=== PATIENT | male | born 1950 | race Caucasian/White ===

== ENCOUNTER 2023-12-05 10:27 | Outpatient (AMB) | payer OTHER, SELFPAY ==
[2023-12-05 10:47] VITALS: BP 124/68; PULSE 76; RESP 16; BMI 26.6
--- NOTE | 2023-12-05 10:47 | A.OFFVIS_ITS ---
Vital Signs 12/05/23 10:47 Height 5 ft 10 in Weight 185 lb 6 oz BMI 26.6 BP 124/68 Blood Pressure Location Rt brachial Position Sitting Respiration 16 Pulse 76 Pulse Source Palpation Intake Visit Reasons: ENP-Parkinson disease Intake Note: Pt presents for new pt consultation for Parkinson's disease. Riprap Worker Required: No Allergies No Known Allergies Allergy (Verified 12/05/23 10:47) Medication List - Last Reconciled 12/05/23 by Haydee Orozco MD atorvastatin 20 mg PO DAILY cholecalciferol (vitamin D3) 50 mcg PO DAILY glucosamine HCl 500 mg PO DAILY hydrochlorothiazide 25 mg PO DAILY losartan 25 mg PO DAILY multivitamin 1 tab PO DAILY sildenafil 100 mg PO DAILY PRN tamsulosin 0.4 mg PO DAILY HPI Comments Details: 73y/o Right handed male comes for neurological evaluation of possible parkinsons disease. He is accompanied by his deep fryer assembler Moriah He noticed intermittent hand tremors about 10 years ago .The tremors are mostly at rest and happens in short episodes lasting few seconds. The tremors does not bother him and does not affect his ADLs. He reports mild memory issues. Sleep is ok but has nocturia . He denies nightmares, vivid dreams , REM behavior disorder. His mood is Ok and he is motivated. He did not notice any change in his speech. He drools frequently . He has mild difficulty with hand writing. No problems using utensils, dressing , with shower. His gait is slow and mildly off balance . His duaghter noticed that he does not swing his left arm. No dizziness , no double vision . He has constipation and mild urgency He was given sienmet but he did not try it. He declined MARILEE scan. He was exposed to [employer] - 9 months. 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 He had a few falls- 2 falls was related to passing out in the middle of the night. [facility] Medical History Parkinsonism Male erectile dysfunction, unspecified Essential hypertension Carcinoma in situ of prostate Benign prostate hyperplasia Social History Household Members: Spouse Household Members Other:: Sarai, Housing: House Alcohol intake: current Comment: occasional Patient Tobacco Use Status: Never used Tobacco Use of substances other than those prescribed or required for medical reasons: No Physical Exam Vital Signs: Last Vital Signs Pulse 76 12/05/23 10:47 Resp 16 12/05/23 10:47 BP 124/68 12/05/23 10:47 BMI result Body Mass Index 26.6 Const General: cooperative, healthy appearing, comfortable and no acute distress Nutritional Appearance: average body habitus Orientation/consciousness: patient oriented x3 Eyes Pupils: Equal, round and reactive pupils present Neuro Other: Normal facial expression and blink head tremors Neck tightness No tremors today Right Ue 1 + cog wheel rigidity Kathia hand movements were slow Leg movements normal Gait- mild stoop - decreased arm swings kathia L>R ( patient walks 6 miles on days he does not work) General: patient oriented x3, moves all extremities and no focal motor deficits Cranial nerves: Yes Facial sensation intact/muscles of mastication intact, Yes Equal, round and reactive pupils present, Yes Bilaterally intact EOM present, Yes Nystagmus not present, Yes Normal facial strength present, Yes Midline tongue present, Yes Symmetric palate elevation present and Yes Ability to bilaterally elevate shoulders present Cognition (Neuro): normal cognition Motor exam (neuro): 5/5 motor strength present throughout Deep tendon reflexes (DTR's): Right triceps reflex intensity grade: 1+, Left triceps reflex intensity grade: 1+, Rt Biceps (C5, C6): 1+, Left biceps reflex i ntensity grade: 1+, Right brachioradialis reflex intensity grade: 1+, Left brachioradialis reflex intensity grade: 1+, Right patellar reflex intensity grade: 2+ and Left patellar reflex intensity grade: 2+ Coordination: [id number] test normal Results Reviewed Results Reviewed: MRI Brain-07/2023 Normal Assessment & Plan Assessment & Plan (1) Parkinsonism: Code(s): G20.C - Parkinsonism, unspecified Category: Medical Plan Will consider MARILEE scan next visit I will refer him to OT will follow up clinically in 6 mths Orders: Orders OT Evaluation and Treatment Today G20.C - Parkinsonism, unspecified Coding Level of Care Code New Pt Level 4 (06186) Diagnoses Parkinsonism G20.C
== END 2023-12-05 11:30 | disposition home or self-care (01) ==
PROVIDERS: Visit Provider Psychiatry & Neurology Neurology
DX: G20.C Parkinsonism, unspecified (principal)
CPT/HCPCS: 99204

== ENCOUNTER → 2023-12-05 10:27 | Outpatient (BNVA) | payer OTHER, SELFPAY | PROVIDERS: Visit Provider Psychiatry & Neurology Neurology | DX: G20.C Parkinsonism, unspecified (principal) | CPT/HCPCS: 99202 ==

== ENCOUNTER → 2024-02-26 10:27 | Outpatient (REF) | payer OTHER, SELFPAY | LOC: HO.SL 10:27 | PROVIDERS: PCP Internal Medicine; Visit Provider Psychiatry & Neurology Neurology | DX: R06.83 Snoring (principal); G47.10 Hypersomnia, unspecified | CPT/HCPCS: 95806 ==

== ENCOUNTER → 2024-02-26 10:41 | Outpatient (BNV) | payer OTHER, SELFPAY | PROVIDERS: PCP Internal Medicine; Visit Provider Psychiatry & Neurology Neurology | DX: G47.33 Obstructive sleep apnea (adult) (pediatric) (principal) | CPT/HCPCS: 95806 ==

== ENCOUNTER 2024-07-15 11:13 | Outpatient (AMB) | payer OTHER, SELFPAY ==
--- NOTE | 2024-07-15 11:37 | A.OFFVIS_ITS ---
Vital Signs 07/15/24 11:38 Height 5 ft 10 in Weight 189 lb BMI 27.1 BP 122/78 Blood Pressure Location Rt brachial Position Sitting Pulse 66 Pulse Source Pulse Oximeter Pulse Oximetry (%) 99 Oxygen Delivery Method Room Air Intake Visit Reasons: Follow up Parkinson disease Intake Note: patient was not aware of OT ordered by provider Allergies No Known Allergies Allergy (Verified 07/15/24 11:39) Medication List - Last Reconciled 07/15/24 by Haydee Orozco MD atorvastatin 20 mg PO DAILY cholecalciferol (vitamin D3) 50 mcg PO DAILY glucosamine HCl 500 mg PO DAILY hydrochlorothiazide 12.5 mg PO DAILY losartan 25 mg PO DAILY multivitamin 1 tab PO DAILY sildenafil 100 mg PO DAILY PRN tamsulosin 0.4 mg PO DAILY HPI Comments Details: 73y/o Right handed male comes for follow up of Parkinsonism. No change since last visit He is accompanied by his calender let off helper Moriah History from initial visit-He noticed intermittent hand tremors about 10 years ago .The tremors are mostly at rest and happens in short episodes lasting few seconds. The tremors does not bother him and does not affect his ADLs. He reports mild memory issues. Sleep is ok but has nocturia . He denies nightmares, vivid dreams , REM behavior disorder. His mood is Ok and he is motivated. He did not notice any change in his speech. He drools frequently . He has mild difficulty with hand writing. No problems using utensils, dressing , with shower. His gait is slow and mildly off balance . His daughter noticed that he does not swing his left arm. No dizziness , no double vision . He has constipation and mild urgency He was given sienmet but he did not try it. He declined MARILEE scan. He was exposed to [employer] - 9 months. 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 He had a few falls- 2 falls was related to passing out in the middle of the night. [facility] Medical History Hypersomnia Snoring Parkinsonism Parkinsonism Male erectile dysfunction, unspecified Essential hypertension Carcinoma in situ of prostate Benign prostate hyperplasia Social History Household Members: Spouse Household Members Other:: Sarai, Housing: House Alcohol intake: current Comment: occasional Patient Tobacco Use Status: Never used Tobacco Physical Exam Vital Signs: Last Vital Signs Pulse 66 07/15/24 11:38 BP 122/78 07/15/24 11:38 Pulse Ox 99 07/15/24 11:38 Oxygen Delivery Method Room Air 07/15/24 11:38 BMI result Body Mass Index 27.1 Const General: cooperative, healthy appearing, comfortable and no acute distress Nutritional Appearance: average body habitus Orientation/consciousness: patient oriented x3 Eyes Pupils: Equal, round and reactive pupils present Neuro Other: Normal facial expression and blink head tremors Neck tightness No tremors today Right Ue 1 + cog wheel rigidity Kathia hand movements better Leg movements normal Gait- mild stoop - decreased arm swings kathia L>R ( patient walks 6 miles on days he does not work) General: patient oriented x3, moves all extremities and no focal motor deficits Cranial nerves: Yes Facial sensation intact/muscles of mastication intact, Yes Equal, round and reactive pupils present, Yes Bilaterally intact EOM present, Yes Nystagmus not present, Yes Normal facial strength present, Yes Midline tongue present, Yes Symmetric palate elevation present and Yes Ability to bilaterally elevate shoulders present Cognition (Neuro): normal cognition Motor exam (neuro): 5/5 motor strength present throughout Coordination: [id number] test normal Assessment & Plan Assessment & Plan (1) Parkinsonism: Code(s): G20.C - Parkinsonism, unspecified Category: Medical Qualifiers: Parkinsonism type: unspecified Qualified Code(s): G20.C - Parkinsonism, unspecified Plan MARILEE scan No need for medications now. Continue exercises. will follow up clinically in 6 mths Orders: Orders DaTscan 07/15/24 G20.C - Parkinsonism, unspecified Coding Level of Care Code Est Pt Level 4 (39076) Complex EM visit Add On G2211 Diagnoses Parkinsonism, unspecified Parkinsonism type G20.C Parkinsonism type: unspecified
[2024-07-15 11:38] VITALS: BP 122/78; PULSE 66; O2SAT 99; BMI 27.1
--- OUTSIDE RECORDS SUMMARY | 2024-07-15 13:34 | XMS_ITS | Clinical Summary ---
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 Name Role Phone Unavailable Primary Care Provider Unavailabl e Social History Tobacco Use Types Packs/Day Years Used Date Smoking Tobacco: Never Assessed Sex and Gender Information Value Date Recorded Sex Assigned at Male 01/31/2022 10:24 AM EDT Legal Sex Male 10:24 AM EDT Gender Identity Male 01/31/2022 10:24 AM EDT Sexual Orientation Straight 01/31/2022 10 :24 AM EDT Plan of Treatment Health Maintenance Due Date Last Done Comments CT Colonography 1948 Colonoscopy 1948 Colorectal Cancer Screening 1948 Depression Screening 1948 FIT DNA/Cologuard 1948 FIT 1948 FOBT 1948 Lipid Panel 1948 Sigmoidoscopy 1948 Alcohol/Substance Use Screening 1960 Tobacco Screening 1960 DTaP/Tdap/Td Vaccines (1 - Tdap) 1967 Pneumococcal Vaccine: 50+ Ye ars (1 of 1 - PCV) 1998 Zoster Vaccines (1 of 2) 1998 RSV Patients and Pa tients Aged 60 years or older (1 - 1-dose 75+ series) 2023 COVID-19 Vaccine ( - 2023-2 5 season) 2023 Influenza Vaccine (#1) 2023 HIB Vaccines Aged Out No longer eligi ble based on patient's age to complete this topic HPV Vaccines Aged Out No longer eligi ble based on patient's age to complete this topic Hepatitis A Vaccines Aged Out No long er eligible based on patient's age to complete this topic Hepatitis B Vaccines Aged Out No long er eligible based on patient's age to complete this topic IPV Vaccines Aged Out No longer eligi ble based on patient's age to complete this topic Meningococcal Vaccine Aged Out No thee yolanda eligible based on patient's age to complete this topic RSV under 20 months Aged Out No longe r eligible based on patient's age to complete this topic Rotavirus Vaccines Aged Out No longer eligible based on patient's age to complete this topic
--- OUTSIDE RECORDS SUMMARY | 2024-07-15 13:34 | XMS_ITS | Continuity of Care Document ---
Author Name [facility] Organization [facility] Care Team Providers Care Transportation Assistant Name Role Phone [facility] Unavailable Unavailable Problems Combined list of problems from Department of Defense and Veterans Affairs facilities. It does not include entries that were removed or entered in error. Problem Status Onset Date Problem Type Date of Resolution Comments Source Benign prostatic hyperplasia Active Condition [facility] Blind right eye Active Condition [facility] Erectile dysfunction (SNOMED CT [id number]) Active Condition [facility] Ess[facility] hypertension Active Condition [facility] Exposure to potentially hazardous substance Active Condition Jun 02, 2023 Entered By: CAROLYN LÓPEZ Comment: Connect Snomed Code to ICD 10 Code refer to note dated 02/14/23 [facility] Hypercholesterolemia Active Condition [facility] Obstructive Sleep Apnea of Adult (SCT [id number]) Active Condition Apr 05, 2024 Entered By: SUE ARMSTRONG Comment: moderate, AHI 20/hr, sleep study through [facility] neurology Dr. Orozco [facility] Parkinsonism Active Condition [facility] Prostate cancer Active Condition Jan 02, 2024 Entered By: SUE ARMSTRONG Comment: diagnosed 2020, sees Dr. Celestin, s/p radiation tx [facility] Tinnitus Active Condition [facility] Diagnosis: ICD-10-CM K03.6 Deposits [accretions] on teeth Active Diagnosis [facility] Diagnosis: ICD-10-CM G20.C Parkinsonism, unspecified Active Diagnosis [facility] Diagnosis: ICD-10-CM Z46.0 Encounter for fit/adjst of spectacles and contact lenses Active Diagnosis [facility] Diagnosis: ICD-10-CM Z46.1 Encounter for fitting and adjustment of hearing aid Active Diagnosis [facility] Diagnosis: ICD-10-CM H25.813 Combined forms of age-related cataract, bilateral Active Diagnosis [facility] [place] Diagnosis: ICD-10-CM K08.9 Disorder of teeth and supporting structures, unspecified Active Diagnosis [facility] Diagnosis: ICD-10-CM H90.3 Sensorineural hearing loss, bilateral Active Diagnosis [facility] Diagnosis: ICD-10-CM H61.21 Impacted cerumen, right ear Active Diagnosis [facility] Diagnosis: ICD-10-CM Z71.89 Other specified counseling Active Diagnosis [facility] Diagnosis: ICD-10-CM R25.1 Tremor, unspecified Active Diagnosis [facility] Diagnosis: ICD-10-CM 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 Medication Details Route Status Patient Instructions Prescription Expires Prescription Number Last Dispense Date Ordering Provider Order Date Order Qty Source ATORVASTATI N CA 20MG TAB TAKE ONE-HALF TABLET BY MOUTH ONCE DAILY ORAL ACTIVE 08/01/2024 [id number] FURCOLO,T BRITNEY 2023 45 [facility] ATORVASTATI N CA 40MG TAB TAKE ONE-HALF TABLET BY MOUTH ONCE DAILY FOR HIGH CHOLESTE ROL ORAL DISCONT INUED (EDIT) 07/14/2024 [id number] FURCOLO,T BRITNEY 2023 45 [facility] CARBAMIDE PEROXIDE 6.5%/GLYCER IN SOLN,OTIC INSTILL 5 DROPS INTO THE AFFECTED EAR(S) ONCE DAILY FOR EAR WAX BLOCKAGE (USE DIRECTED ) AURICU LAR (OTIC) 07/13/2024 [id number] FURCOLO,T BRITNEY 2023 15 [place] [facility] CARBIDOPA 25MG/LEVODO PA 100MG TAB TAKE 1 TABLET BY MOUTH THREE TIMES A DAY FOR PARKINSO N SYMPTOMS ORAL DISCONT INUED BY PROVIDE R 05/15/2024 [id number] THIERRY DORSEY Y 2023 270 [facility] [place] CHOLECALCIF JESSICA 50MCG (2,000UNIT) TAB TAKE ONE TABLET BY MOUTH ONCE DAILY ORAL ACTIVE DERRICK TSAI AMMARICRUZ JAWED 2020 [facility] GLUCOSAMINE CAP/TAB TAKE EVERY MORNING ACTIVE ALEXANDR PARRA [facility] LOSARTAN 25MG TAB TAKE ONE TABLET BY MOUTH ONCE DAILY ORAL ACTIVE EULALIODERRICK AMMARICRUZ JAWED 2020 [facility] METOPROLOL SUCCINATE 25MG TAB,SA TAKE ONE TABLET BY MOUTH ONCE DAILY FOR BLOOD PRESSURE /HEART ORAL 07/13/2024 [id number] 4 Ele ARMSTRONG BRITNEY 2023 90 [facility] MULTIVITAMI NS W/MINERALS TAB TAKE ONE TABLET BY MOUTH EVERY MORNING ORAL ACTIVE ALEXANDR PARRA 2012 [facility] SODIUM FLUORIDE 1.1% TOOTHPASTE BRUSH SMALL AMOUNT TO TEETH TWICE DAILY FOR TOOTH DECAY PREVENTI ON DENTAL ACTIVE 07/14/2024 [id number] 4 NYASIA ABARCA 2023 51 [facility] TAMSULOSIN HCL 0.4MG CAP TAKE ONE CAPSULE BY MOUTH AT BEDTIME ORAL ACTIVE 07/14/2024 [id number] 4 PATTIT BRITNEY 2023 90 [facility] Immunizations Combined list of available immunizations from the Department of Defense and Veterans Affairs facilities. Immunization Series Date Given Administered By Site Reaction Lot Number CVX Code Drug Karate Instructor Status Comments Source INFLUENZA, UNSPECIFIED FORMULATION 2023 88 complet ed Booster for Series, HISTORICA L INFORMATI ON - FROM OTHER PROVIDER, [facility] TDAP 2022 KALEE DUNN RIGHT DELTO ID [id number] 115 complet ed ADMINISTE RED AT ND, [facility] INFLUENZA, UNSPECIFIED FORMULATION 2022 88 complet ed Completed Series, HISTORICA L INFORMATI ON - FROM OTHER REGISTRY, [facility] INFLUENZA, UNSPECIFIED FORMULATION 2021 88 complet ed [facility] COVID-19 (MODERNA), MRNA, LNP-S, PF, 100 MCG/0.5 ML DOSE 3 2020 207 complet ed MOD; [id number]; 1 [facility] COVID-19 (MODERNA), MRNA, LNP-S, PF, 100 MCG/0.5 ML DOSE 2 2020 207 complet ed MOD; [id number]; 1 [facility] COVID-19 (MODERNA), MRNA, LNP-S, PF, 100 MCG/0.5 ML DOSE 1 2020 207 complet ed MOD; [id number]; 1 [facility] INFLUENZA, UNSPECIFIED FORMULATION 2019 88 complet ed [facility] INFLUENZA, SEASONAL, INJECTABLE 2018 141 complet ed [facility] PNEUMOCOCCAL CONJUGATE PCV 13 2014 133 complet ed yes [facility] PNEUMOCOCCAL POLYSACCHARID E PPV23 2013 33 complet ed [facility] FLU,3 YRS (HISTORICAL) 2012 88 complet ed [facility] TDAP 2012 115 complet ed [facility] PNEUMOCOCCAL, UNSPECIFIED FORMULATION 2011 109 complet ed [facility] Results Combined list of recent chemistry, hematology and other laboratory results from Department of Defense and Veterans Affairs, ranging from 15 months to all on record, depending upon the facility. Order Name Results Value Reference Range Date Interpretation Specimen Comments Source BASIC METABOLIC PANEL (non-fast ing) UREA NITROGEN [MASS/VOLUM E] IN SERUM OR PLASMA 23 mg/dL 7 - 25 12/21 Specimen Type: SERUM No comment entered. Ordering Provider: SUE ARMSTRONG Report Released Date/Time: Dec 14, 2023 07:34 PM Reporting Lab: [facility] [address] [facility] [address] Performing Lab: [facility] HoldingUSEVA [facility] [address] [facility] [address] [facility] Be[facility] HoldingUSE [facility] BASIC METABOLIC PANEL (non-fast ing) GLUCOSE [MASS/VOLUM E] IN SERUM OR PLASMA 100 mg/dL 65 - 100 12/21 Specimen Type: SERUM No comment entered. Ordering Provider: SUE ARMSTRONG Report Released Date/Time: Dec 14, 2023 07:34 PM Reporting Lab: [facility] [place] [facility] [address] [facility] [address] Performing Lab: [facility] HoldingUSEVA [facility] [address] [facility] [address] [facility] Be[facility] HoldingUSE [facility] BASIC METABOLIC PANEL (non-fast ing) SODIUM [MOLES/VOLU ME] IN SERUM OR PLASMA 141 mmol/L 135 - 145 12/21 Specimen Type: SERUM No comment entered. Ordering Provider: SUE ARMSTRONG Report Released Date/Time: Dec 14, 2023 07:34 PM Reporting Lab: [facility] HoldingUSETS [facility] [address] [facility] [address] Performing Lab: [facility]ITALUSE[facility] [address] [facility] [address] [facility]ITALUSE [facility] BASIC METABOLIC PANEL (non-fast ing) POTASSIUM [MOLES/VOLU ME] IN SERUM OR PLASMA 3.8 mmol/L 3.5 - 5.0 12/21 Specimen Type: SERUM No comment entered. Ordering Provider: SUE ARMSTRONG Report Released Date/Time: Dec 14, 2023 07:34 PM Reporting Lab: [facility]PITALUSETS [facility] [address] [facility] [address] Performing Lab: [facility]RL W[facility]N [facility]ITALUSE[facility] [address] [facility] [address] [facility] W[facility]N [facility]ITALUSE [facility] BASIC METABOLIC PANEL (non-fast ing) CHLORIDE [MOLES/VOLU ME] IN SERUM OR PLASMA 104 mmol/L 100 - 110 12/21 Specimen Type: SERUM No comment entered. Ordering Provider: SUE ARMSTRONG Report Released Date/Time: Dec 14, 2023 07:34 PM Reporting Lab: [facility]RL [facility]N [facility]ITALUSE[address] [address] Performing Lab: [facility] CENTERRENCOMPASS [facility] RE[facility]ABILIT[facility] HOSPITAL [facility] GADSDENTRN [facility]OSPITALUSE[address] [address] [facility]OSPITALUSE [facility] BASIC METABOLIC PANEL (non-fast ing) CARBON DIOXIDE, TOTAL [MOLES/VOLU ME] IN SERUM OR PLASMA 28 meq/L 20 - 30 12/21 Specimen Type: SERUM No comment entered. Ordering Provider: SUE ARMSTRONG Report Released Date/Time: Dec 14, 2023 07:34 PM Reporting Lab: [facility]RL [facility]N [facility]ITALUSE[address] [address] Performing Lab: [facility]RL W[facility]N [facility]ITALUSE[address] [address] [facility]RL TRN [facility]OSPITALUSE [facility] BASIC METABOLIC PANEL (non-fast ing) CREATININE [MASS/VOLUM E] IN SERUM OR PLASMA 1.39 mg/dL 0.50 - 1.40 12/21 Specimen Type: SERUM No comment entered. Ordering Provider: SUE ARMSTRONG Report Released Date/Time: Dec 14, 2023 07:34 PM Reporting Lab: [facility]RL [facility]N [facility]ITAL[facility] [address] Performing Lab: [facility]RL WSTRN [facility]ITALUSE[address] [address] [facility] CENTERRENCOMPASS [facility]ALTH REHABILIT[facility]SDENTRN [facility] BASIC METABOLIC PANEL (non-fast ing) GLOMERULAR FILTRATION RATE/1.73 SQ M.PREDICTED [VOLUME RATE/AREA] IN SERUM, PLASMA OR BLOOD BY CREATININE- BASED FORMULA (CKD-EPI 2020) 53 mL/min 60 12/21 L Specimen Type: SERUM No comment entered. Ordering Provider: SUE ARMSTRONG Report Released Date/Time: Dec 14, 2023 07:34 PM Reporting Lab: [facility]N [facility]OSPITALUSEVA [facility] [address] [facility] [address] Performing Lab: [facility]N [facility]ITALUSE[address] [address] [facility] LIPID PANEL, NON FASTING CHOLESTEROL [MASS/VOLUM E] IN SERUM OR PLASMA 160 mg/dL 12/21 Specimen Type: SERUM No comment entered. Ordering Provider: SUE ARMSTRONG Report Released Date/Time: Dec 14, 2023 07:34 PM Reporting Lab: [facility] [address] [facility] [address] Performing Lab: [facility]N [facility]ITALUSE[address] [address] [facility] LIPID PANEL, NON FASTING TRIGLYCERID E [MASS/VOLUM E] IN SERUM OR PLASMA 88 mg/dL 0 - 150 12/21 Specimen Type: SERUM No comment entered. Ordering Provider: SUE ARMSTRONG Report Released Date/Time: Dec 14, 2023 07:34 PM Reporting Lab: [facility]N [facility]ITALUSE[address] [address] Performing Lab: [facility]N [facility]ITALUSE[address] [address] [facility] LIPID PANEL, NON FASTING CHOLESTEROL IN LDL [MASS/VOLUM E] IN SERUM OR PLASMA BY CALCULATION 79 mg/dL 0 - 129 12/21 Specimen Type: SERUM No comment entered. Ordering Provider: SUE ARMSTRONG Report Released Date/Time: Dec 14, 2023 07:34 PM Reporting Lab: [address] [address] Performing Lab: [facility] CENTERRENCOMPASS [facility]ABILIT[facility] HOSP[facility] GADSDENTRN [facility]ITALUSE[facility] [address] [facility] [address] [facility]N [facility] HOSPITALUSE [facility] LIPID PANEL, NON FASTING CHOLESTEROL .TOTAL/CHOL ESTEROL IN HDL [MASS RATIO] IN SERUM OR PLASMA 2.5 12/21 Specimen Type: SERUM No comment entered. Ordering Provider: SUE ARMSTRONG Report Released Date/Time: Dec 14, 2023 07:34 PM Reporting Lab: [facility] CENTERRENCOM[facility]IL[facility] HOS[facility] GADSDENTRN [facility]OSPITALUSEVA [facility] [address] [facility] [address] Performing Lab: [facility] CENTERRCARRAWAY [facility] CENTERN [facility]ITALUSE[address] [address] [facility]N [facility] LIPID PANEL, NON FASTING CHOLESTEROL IN HDL [MASS/VOLUM E] IN SERUM OR PLASMA 63 mg/dL 40 - 60 12/21 H Specimen Type: SERUM No comment entered. Ordering Provider: SUE ARMSTRONG Report Released Date/Time: Dec 14, 2023 07:34 PM Reporting Lab: [facility] CENTERRL TRN [facility] HOSPITALUSETS [facility] [address] [facility] [address] Performing Lab: [facility]ENTERRL TRN [facility]ITALUSE[address] [address] [facility]N [facility] HOSPITALUSE [facility] BASIC METABOLIC PANEL (fasting) UREA NITROGEN [MASS/VOLUM E] IN SERUM OR PLASMA 25 mg/dL 7 - 25 07/12 Specimen Type: SERUM No comment entered. Ordering Provider: SUE ARMSTRONG Report Released Date/Time: Jul 13, 2023 10:25 AM Reporting Lab: [facility] CENTERRENCOMPASS [facility] RE[facility]ABILITATION HOSPITAL OF GADSDENTRN [place] [address] [address] Performing Lab: [facility] CENTERRENCOM[facility]ILIT[facility] HOSP[facility] OF GADSDENTRN [facility]ITALUSE[address] [address] [facility] CENTERRCARRAWAY METHODIST MEDICAL CENTERN [facility] HOSPITALUSE [facility] BASIC METABOLIC PANEL (fasting) GLUCOSE [MASS/VOLUM E] IN SERUM OR PLASMA 86 mg/dL 65 - 100 07/12 Specimen Type: SERUM No comment entered. Ordering Provider: SUE ARMSTRONG Report Released Date/Time: Jul 13, 2023 10:25 AM Reporting Lab: [facility]ENTERRL [facility]N [place] [facility] [address] [facility] [address] Performing Lab: [place] [facility] [facility] [address] [facility] [address] [facility]RL [facility]N [place] [facility] BASIC METABOLIC PANEL (fasting) SODIUM [MOLES/VOLU ME] IN SERUM OR PLASMA 141 mmol/L 135 - 145 07/12 Specimen Type: SERUM No comment entered. Ordering Provider: SUE ARMSTRONG Report Released Date/Time: Jul 13, 2023 10:25 AM Reporting Lab: [facility] [place] [facility] [address] [facility] [address] Performing Lab: [place] [facility] [place] [facility] [address] [facility] [address] [facility]RL TRN [facility]OSPITALUSE [facility] BASIC METABOLIC PANEL (fasting) POTASSIUM [MOLES/VOLU ME] IN SERUM OR PLASMA 4.3 mmol/L 3.5 - 5.0 07/12 Specimen Type: SERUM No comment entered. Ordering Provider: SEU ARMSTRONG Report Released Date/Time: Jul 13, 2023 10:25 AM Reporting Lab: [facility] [place] [facility] [address] [facility] [address] Performing Lab: [place] [facility] [place] [facility] [address] [facility] [address] [facility]ENTERRL TRN [facility]ITALUSE [facility] BASIC METABOLIC PANEL (fasting) CHLORIDE [MOLES/VOLU ME] IN SERUM OR PLASMA 102 mmol/L 100 - 110 07/12 Specimen Type: SERUM No comment entered. Ordering Provider: SUE ARMSTRONG Report Released Date/Time: Jul 13, 2023 10:25 AM Reporting Lab: [facility] [place] [facility] [address] [facility] [address] Performing Lab: [place] [facility] [place] [facility] [address] [facility] [address] [facility]RL WSTRN [facility]ITALUSE [facility] BASIC METABOLIC PANEL (fasting) CARBON DIOXIDE, TOTAL [MOLES/VOLU ME] IN SERUM OR PLASMA 28 meq/L 20 - 30 07/12 Specimen Type: SERUM No comment entered. Ordering Provider: SUE ARMSTRONG Report Released Date/Time: Jul 13, 2023 10:25 AM Reporting Lab: [facility] [place] [facility] [address] [facility] [address] Performing Lab: [facility] [place] [facility] [address] [facility] [address] [facility]RL [facility]N [place] [facility] BASIC METABOLIC PANEL (fasting) CREATININE [MASS/VOLUM E] IN SERUM OR PLASMA 1.42 mg/dL 0.50 - 1.40 07/12 H Specimen Type: SERUM No comment entered. Ordering Provider: SUE ARMSTRONG Report Released Date/Time: Jul 13, 2023 10:25 AM Reporting Lab: [facility] [place] [facility] [address] [facility] [address] Performing Lab: [place] [facility] [place] [address] [address] [facility]RL WSTRN MASSUSE [facility] BASIC METABOLIC PANEL (fasting) GLOMERULAR FILTRATION RATE/1.73 SQ M.PREDICTED [VOLUME RATE/AREA] IN SERUM, PLASMA OR BLOOD BY CREATININE- BASED FORMULA (CKD-EPI 2020) 51 mL/min 60 07/12 L Specimen Type: SERUM No comment entered. Ordering Provider: SUE ARMSTRONG Report Released Date/Time: Jul 13, 2023 10:25 AM Reporting Lab: [facility] [facility] [address] [facility] [address] Performing Lab: [place] [facility] [place] [address] [address] [facility]RL W[facility]N [facility] LIPID PANEL FASTING CHOLESTEROL [MASS/VOLUM E] IN SERUM OR PLASMA 169 mg/dL 07/12 Specimen Type: SERUM No comment entered. Ordering Provider: SUE ARMSTRONG Report Released Date/Time: Jul 13, 2023 10:25 AM Reporting Lab: [facility] [facility] [address] [facility] [address] Performing Lab: [facility]RL WSTRN [facility]PITALUSETS [address] [address] [facility]RL [facility] [place] [facility] LIPID PANEL FASTING TRIGLYCERID E [MASS/VOLUM E] IN SERUM OR PLASMA 67 mg/dL 0 - 150 07/12 Specimen Type: SERUM No comment entered. Ordering Provider: SUE ARMSTRONG Report Released Date/Time: Jul 13, 2023 10:25 AM Reporting Lab: [facility] [facility] [address] [facility] [address] Performing Lab: [place] [facility]N [facility]ITALUSETS [facility] [address] [facility] [address] [facility] W[facility]N [facility]RAW[facility]ENTERCHUSE [facility] LIPID PANEL FASTING CHOLESTEROL IN LDL [MASS/VOLUM E] IN SERUM OR PLASMA BY CALCULATION 87 mg/dL 0 - 129 07/12 Specimen Type: SERUM No comment entered. Ordering Provider: SUE ARMSTRONG Report Released Date/Time: Jul 13, 2023 10:25 AM Reporting Lab: [facility] CENTERRENCOM[facility] GADSDENTRN [facility]ITALUSE[address] [address] Performing Lab: [facility]RL WSTRN [facility]ITAL[facility] [address] [facility]RL TRN [facility]ITALUSE [facility] LIPID PANEL FASTING CHOLESTEROL .TOTAL/CHOL ESTEROL IN HDL [MASS RATIO] IN SERUM OR PLASMA 2.4 07/12 Specimen Type: SERUM No comment entered. Ordering Provider: SUE ARMSTRONG Report Released Date/Time: Jul 13, 2023 10:25 AM Reporting Lab: [facility]RL [place] [place] [address] [address] Performing Lab: [facility]RL WSTRN [facility]PITALUSETS [address] [address] [facility]RL TRN [facility]ITALUSE [facility] LIPID PANEL FASTING CHOLESTEROL IN HDL [MASS/VOLUM E] IN SERUM OR PLASMA 69 mg/dL 40 - 60 07/12 H Specimen Type: SERUM No comment entered. Ordering Provider: SUE ARMSTRONG Report Released Date/Time: Jul 13, 2023 10:25 AM Reporting Lab: [facility]RL [place] [place] [address] [address] Performing Lab: [facility]RL [place] [address] [address] [facility]RL [facility]N [place] [facility] LIVER FUNCTION PROTEIN [MASS/VOLUM E] IN SERUM OR PLASMA 7.1 g/dL 6.0 - 8.3 07/12 Specimen Type: SERUM No comment entered. Ordering Provider: SUE ARMSTRONG Report Released Date/Time: Jul 13, 2023 10:25 AM Reporting Lab: [facility] [place] [facility] [address] [facility] [address] Performing Lab: [facility] [facility] [address] [facility] [address] [place] [facility] [place] [facility] LIVER FUNCTION ALBUMIN [MASS/VOLUM E] IN SERUM OR PLASMA 4.2 g/dL 3.5 - 5.0 07/12 Specimen Type: SERUM No comment entered. Ordering Provider: SUE ARMSTRONG Report Released Date/Time: Jul 13, 2023 10:25 AM Reporting Lab: [facility] [place] [address] [address] Performing Lab: [facility] [place] [address] [address] [facility] [place] [facility] LIVER FUNCTION ALKALINE PHOSPHATASE [ENZYMATIC ACTIVITY/VO LUME] IN SERUM OR PLASMA 106 U/L 40 - 150 07/12 Specimen Type: SERUM No comment entered. Ordering Provider: SUE ARMSTRONG Report Released Date/Time: Jul 13, 2023 10:25 AM Reporting Lab: [facility] [place] [address] [address] Performing Lab: [facility] [place] [address] [address] [facility] [place] [facility] LIVER FUNCTION ASPARTATE AMINOTRANSF ERASE [ENZYMATIC ACTIVITY/VO LUME] IN SERUM OR PLASMA 26 U/L 5 - 34 07/12 Specimen Type: SERUM No comment entered. Ordering Provider: SUE ARMSTRONG Report Released Date/Time: Jul 13, 2023 10:25 AM Reporting Lab: [facility] [place] [address] [address] Performing Lab: [place] [facility] [address] [address] [facility] LIVER FUNCTION ALANINE AMINOTRANSF ERASE [ENZYMATIC ACTIVITY/VO LUME] IN SERUM OR PLASMA 24 U/L 07/12 Specimen Type: SERUM No comment entered. Ordering Provider: SUE ARMSTRONG Report Released Date/Time: Jul 13, 2023 10:25 AM Reporting Lab: [address] Performing Lab: [address] LIVER FUNCTION BILIRUBIN.T OTAL [MASS/VOLUM E] IN SERUM OR PLASMA 0.8 mg/dL 0.2 - 1.2 07/12 Specimen Type: SERUM No comment entered. Ordering Provider: SUE ARMSTRONG Report Released Date/Time: Jul 13, 2023 10:25 AM Reporting Lab: [address] [address] Performing Lab: [id number] [place] [address] VITAMIN B-1 (THIAMINE )-(QU) THIAMINE [MOLES/VOLU ME] IN SERUM OR PLASMA 17 nmol/L 8 - 30 05/15 Specimen Type: PLASMA Comment: Vitamin supplementa tion within 24 hours prior to blood draw may affect the accuracy of the results. This test was developed and its analytical performance characteris tics have been determined by [facility] [place], [place]. It has not been cleared or approved by the U.S. Food and Drug Administrat ion. This assay has been validated pursuant to the CLIA regulations and is used for clinical purposes. Test Performed by [employer], [facility] [place], [address] [facility], [place], [place] Vinnie Cesar M.D., Ph.D., Director of Laboratorie s , CLIA [id number] TEST PERFORMED AT: , Ordering Provider: JOHNIE DORSEY Report Released Date/Time: May 15, 2023 08:04 AM Reporting Lab: [facility] [place] [facility] [address] [facility] [address] Performing Lab: [facility] [place] [facility] [address] [address] [facility] VITAMIN B12 COBALAMIN (VITAMIN B12) [MASS/VOLUM E] IN SERUM OR PLASMA 829 pg/mL 200 - 900 05/15 Specimen Type: SERUM No comment entered. Ordering Provider: JOHNIE DORSEY Report Released Date/Time: May 15, 2023 08:04 AM Reporting Lab: [facility] [place] [facility] [address] [facility] [address] Performing Lab: [facility] [place] [facility] [address] [facility] [address] [facility] IRON & TIBC PANEL IRON BINDING CAPACITY [MASS/VOLUM E] IN SERUM OR PLASMA 253 ug/dL 204 - 475 05/15 Specimen Type: SERUM No comment entered. Ordering Provider: JOHNIE DORSEY Report Released Date/Time: May 15, 2023 08:04 AM Reporting Lab: [facility] [place] [facility] [address] [facility] [address] Performing Lab: [facility] [place] [facility] [address] [facility] [address] [facility] [place] [facility] IRON & TIBC PANEL IRON [MASS/VOLUM E] IN SERUM OR PLASMA 111 ug/dL 40 - 160 05/15 Specimen Type: SERUM No comment entered. Ordering Provider: JOHNIE DORSEY Report Released Date/Time: May 15, 2023 08:04 AM Reporting Lab: [facility] [place] [facility] [address] [facility] [address] Performing Lab: [facility] [place] [facility] [address] [facility] [address] [facility] [place] [facility] IRON & TIBC PANEL IRON/IRON BINDING CAPACITY.TO WILIAM [MASS RATIO] IN SERUM OR PLASMA 43.8 20.0 - 50.0 05/15 Specimen Type: SERUM No comment entered. Ordering Provider: JOHNIE DORSEY Report Released Date/Time: May 15, 2023 08:04 AM Reporting Lab: [facility] [place] [facility] [address] [facility] [address] Performing Lab: [facility] [place] [facility] [address] [facility] [address] [facility] [place] VITAMIN D (25-OH) 25-HYDROXYV ITAMIN D3 [MASS/VOLUM E] IN SERUM OR PLASMA 88 ng/mL 20 - 50 05/15 H Specimen Type: SERUM No comment entered. Ordering Provider: JOHNIE DORSEY Report Released Date/Time: May 15, 2023 08:04 AM Reporting Lab: [facility] [place] [facility] [address] [facility] [address] Performing Lab: [facility] [place] [facility] [address] [facility] [address] [facility] [place] BASIC METABOLIC PANEL (fasting) UREA NITROGEN [MASS/VOLUM E] IN SERUM OR PLASMA 20 mg/dL 7 - 25 02/07 Specimen Type: SERUM No comment entered. Ordering Provider: JIMBO TSAI Report Released Date/Time: Jan 27, 2023 11:10 AM Reporting Lab: [facility] [place] [facility] [address] [facility] [address] Performing Lab: [facility] [place] [facility] [address] [facility] [address] [facility] [place] [facility] BASIC METABOLIC PANEL (fasting) GLUCOSE [MASS/VOLUM E] IN SERUM OR PLASMA 84 mg/dL 65 - 100 02/07 Specimen Type: SERUM No comment entered. Ordering Provider: JIMBO TSAI Report Released Date/Time: Jan 27, 2023 11:10 AM Reporting Lab: [facility] [place] [facility] [address] [facility] [address] Performing Lab: [facility] [place] [facility] [address] [facility] [address] [facility] [place] [facility] BASIC METABOLIC PANEL (fasting) SODIUM [MOLES/VOLU ME] IN SERUM OR PLASMA 141 mmol/L 135 - 145 02/07 Specimen Type: SERUM No comment entered. Ordering Provider: JIMBO TSAI Report Released Date/Time: Jan 27, 2023 11:10 AM Reporting Lab: [facility] [place] [facility] [address] [facility] [address] Performing Lab: [facility] [place] [facility] [address] [facility] [address] [facility] [facility] BASIC METABOLIC PANEL (fasting) POTASSIUM [MOLES/VOLU ME] IN SERUM OR PLASMA 4.9 mmol/L 3.5 - 5.0 02/07 Specimen Type: SERUM No comment entered. Ordering Provider: JIMBO TSAI Report Released Date/Time: Jan 27, 2023 11:10 AM Reporting Lab: [facility] [place] [address] [address] Performing Lab: [facility] [place] [address] [address] [facility] [place] [facility] BASIC METABOLIC PANEL (fasting) CHLORIDE [MOLES/VOLU ME] IN SERUM OR PLASMA 105 mmol/L 100 - 110 02/07 Specimen Type: SERUM No comment entered. Ordering Provider: JIMBO TSAI Report Released Date/Time: Jan 27, 2023 11:10 AM Reporting Lab: [facility] [place] [facility] [address] [facility] [address] Performing Lab: [facility] [place] [facility] [address] [facility] [address] [facility] [facility] BASIC METABOLIC PANEL (fasting) CARBON DIOXIDE, TOTAL [MOLES/VOLU ME] IN SERUM OR PLASMA 29 meq/L 20 - 30 02/07 Specimen Type: SERUM No comment entered. Ordering Provider: JIMBO TSAI Report Released Date/Time: Jan 27, 2023 11:10 AM Reporting Lab: [facility] [place] [facility] [address] [facility] [address] Performing Lab: [facility] [place] [facility] [address] [facility] [address] [facility] [place] [facility] BASIC METABOLIC PANEL (fasting) CREATININE [MASS/VOLUM E] IN SERUM OR PLASMA 1.26 mg/dL 0.50 - 1.40 02/07 Specimen Type: SERUM No comment entered. Ordering Provider: JIMBO TSAI Report Released Date/Time: Jan 27, 2023 11:10 AM Reporting Lab: [facility] [place] [facility] [address] [facility] [address] Performing Lab: [facility] [place] [facility] [address] [facility] [address] [facility] [place] [facility] BASIC METABOLIC PANEL (fasting) GLOMERULAR FILTRATION RATE/1.73 SQ M.PREDICTED [VOLUME RATE/AREA] IN SERUM, PLASMA OR BLOOD BY CREATININE- BASED FORMULA (CKD-EPI 2020) 59 mL/min 60 02/07 L Specimen Type: SERUM No comment entered. Ordering Provider: JIMBO TSAI Report Released Date/Time: Jan 27, 2023 11:10 AM Reporting Lab: [facility] [place] [facility] [address] [facility] [address] Performing Lab: [facility] [place] [facility] [address] [facility] [address] [facility] [place] [facility] Vital Signs Combined list of inpatient and outpatient Vital Signs from Department of Defense and Veterans Affairs, ranging from 12 months to all on record, depending upon the facility. Vital Sign Value Date Comments Source SYSTOLIC BLOOD PRESSURE 130 01/02/20 24 09:09:42 [facility] [place] [facility] DIASTOLIC BLOOD PRESSURE 66 024 09:09:42 [facility] [place] [facility] PULSE OXIMETRY 98 01/02/2024 09:09:42 [facility] [place] [facility] WEIGHT 190 01/02/2024 09:09:42 [facility] [place] [facility] BMI 27 kg/m2 01/02/2024 09:09:42 [facility] [place] [facility] PAIN 0 01/02/2024 09[facility]09:42 [facility] [place] TEMPERATURE 97.7 01/02/2024 09:09:42 [facility] PULSE 52 01/02/2024 09:09:42 [facility] RESPIRATION 16 01/02/2024 09:09:42 [facility] SYSTOLIC BLOOD PRESSURE 130 07/28/19 24 12:25:32 [facility] DIASTOLIC BLOOD PRESSURE 90 024 12:25:32 [facility] PULSE OXIMETRY 96 07/28/2023 12:25:32 [facility] PULSE 60 07/28/2023 12:25:32 [facility] RESPIRATION 18 07/28/2023 12:25:32 [facility] Encounters Combined list of: 1) Encounters from Department of Veterans Affairs facilities going backup to the last 18 months, not all VA inpatient encounters are included; 2) Encounters from the Department of Defense facilities going backup to 280 months. Location Location Details Encounter Type Encounter Number Reason For Visit Attending Provider ADM Date DC Date Status Disposition Source [facility] Out[facility] Encounter [id number] 01/14 [facility] Out[facility] Encounter [id number] 01/30 [facility] INTRAORAL PERIAPICAL FIRST [id number] Diagnos is: ICD-10- CM K08.9 Disorde r of teeth and support ing structu res, unspeci NYASIA Elizabeth 02/14 [facility] OFFICE O/P EST MOD 30-39 MIN [id number] Diagnos is: ICD-10- CM 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 SHERRIE TSAI MMED JAWED 02/14 [facility] Out[facility] Encounter [id number] 02/21 [facility]counter [id number] 02/22 [facility] Out[facility] Encounter [id number] 04/20 [facility] OFFICE O/P EST MOD 30 MIN [id number] Diagnos is: ICD-10- CM R25.1 Tremor, unspeci fied SHERRIE TSAI MMED JAWED 05/08 [facility] Out[facility] En[facility] [id number] 05/09 [facility] OFF/OP CNSLTJ NEW/EST MOD 40 [id number] Diagnos is: ICD-10- CM G20.C Lakesha onism, unspeci fied LORI DORSEY IEL Y 05/15 [facility] Out[facility] En[facility] [id number] 07/04 [facility] Out[facility] Encounter [id number] 07/06 [facility] Out[facility] Encounter [id number] 07/12 [facility] OFFICE O/[place] HI 40 MIN [id number] Diagnos is: ICD-10- CM G20.C Lakesha onism, unspeci fied FURCOLO,TI NA 07/12 [facility] DENTAL BITEWING FOUR IMAGES [id number] Diagnos is: ICD-10- CM K08.9 Disorde r of teeth and support ing structu res, unspeci fied NYASIA ABARCA 07/13 [facility] CASE MGMT-ORAL HEALTH LIT [id number] Diagnos is: ICD-10- CM K03.6 Deposit s [accret ions] on teeth Gilda GARRETT 07/13 [facility] Outpatient Encounter [id number] 07/13 [facility] Outpatient Encounter [id number] 07/19 [facility] [place] OFF/OP EST MAY X REQ PHY/QHP [id number] Diagnos is: ICD-10- CM Z71.89 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 ing Jordy VIVAR 07/27 [facility] OFF/OP EST MAY X REQ PHY/QHP [id number] Diagnos is: ICD-10- CM H61.21 Impacte d cerumen , right ear Jordy VIVAR 07/31 [facility] Out[facility] Encounter [id number] 07/31 [facility] HEARING AID EXAM BOTH EARS [id number] Diagnos is: ICD-10- CM H90.3 Sensori neural hearing loss, bilater al TROY MEDINA L 08/10 [facility] Out[facility] Encounter [id number] 08/28 [facility] CROWN PORCELAIN/ CERAMIC SUBS [id number] Diagnos is: ICD-10- CM K08.9 Disorde r of teeth and support ing structu res, unspeci NYASIA Elizabeth 08/29 [facility] COMPRE OPH EXAM EST PT 1/ [id number] Diagnos is: ICD-10- CM H25.813 Combine d forms of age-rel ated catarac t, bilater al FRANCIS HUGO 09/05 [facility] FIT SPECTACLES MULTIFOCAL [id number] Diagnos is: ICD-10- CM Z46.0 Encount er for fit/adj st of spectac les and contact lenses FRANCIS HUGO 09/05 [facility] [place] HEARING SERVICE [id number] Diagnos is: ICD-10- CM Z46.1 Encount er for fitting and adjustm ent of hearing aid Ame KANG 09/10 [facility] Out[facility] Encounter [id number] 12/04 [facility] Out[facility] Encounter [id number] 12/04 [facility] Out[facility] Encounter [id number] 12/14 [facility] [place] CASE MGMT-ORAL HEALTH LIT [id number] Diagnos is: ICD-10- CM K03.6 Deposit s [accret ions] on teeth Gilda GARRETT ADEZHDA 12/17 [facility] [place] RPR&REFITG SPECT XCP APHAKIA [id number] Diagnos is: ICD-10- CM Z46.0 Encount er for fit/adj st of spectac les and contact lenses GARRETT MATTHEW 12/17 [facility] Out[facility] Encounter [id number] 12/19 [facility] Out[facility] Encounter [id number] 12/20 [facility] OFFICE O/P EST MOD 30 MIN [id number] Diagnos is: ICD-10- CM G20.C Lakesha onism, unspeci fied FURCOLO,TI NA 01/01 [facility] Out[facility] Encounter [id number] 02/25 [facility] [place] Outpatient [facility]counter [id number] 07/05 [facility] [place] Outpatient [facility]counter [id number] 07/12 [facility] [place] [facility] CASE MGMT-ORAL HEALTH LIT [id number] Diagnos is: ICD-10- CM K03.6 Deposit s [accret ions] on teeth [facility]TT 07[facility] Social History Combined list of available smoking, tobacco, and other social history from Department of Defense and Veterans Affairs facilities. Social History Type Response Date Comment Sour e Tobacco smoking status NHIS ND-TOBACCO NEVER USED 02/14/2023 [facility] [place] [facility] [place] [facility] History of tobacco use ND-TOBACCO NEVER USED 04/24/2020 [facility] [place] [facility] History of tobacco use ND-TOBACCO NEVER USED 04/12/2019 [facility] [place] [facility] History of tobacco use LIFETIME NON-TOBACCO USER [facility] Plan of Care List of future care activities from Department of Veterans Affairs facilities. Additional future care activities may be listed in the Assessment and Plan section. Date/Time Care Activity Care Activity Detail Facili ty 07/15/2024 AMBULATORY - NONE AM[facility]ULAT[facility] - NONE [facility] Advance Directives List of completed, amended, or rescinded Advance Directives on record at Department of Veterans Affairs facilities. An actual copy of the Directive is not included. Date Advance Directive Provider Source 05/10/2019 ADVANCE DIRECTIVE EV DAVIDSON [facility]
--- OUTSIDE RECORDS SUMMARY | 2024-07-15 13:34 | XMS_ITS ---
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 This section includes the names of all active insurance providers for the patient. Insurance Provider Type of Coverage Plan Name Start of Policy Coverage End of Policy Coverage Group Number Member ID Insurance Provider's Telephone Number Policy Hsu's Name Patient's Relationship to Policy Hsu [facility] MEDICARE SUPPLEMEN WILIAM MEDEX 2 Jan 02, 2020 [id number] TREY BUITRAGO PATIENT MEDICARE (WNR) MEDICARE (M) PART A Mar 03, 2013 PART A [id number] TREY BUITRAGO WING PATIENT MEDICARE (WNR) MEDICARE (M) PART B Mar 03, 2013 PART B [id number] TREY BUITRAGO PATIENT Selected Encounter This section includes the information on record at [place] for the Encounter. Date/Time Encounter Type Encounter Description Reason Provider Source Jan 02, 2024 09:30 AM OFFICE O/P EST MOD 30 MIN PRIMARY CARE/MEDICINE ICD-10-CM G20.C Parkinsonism, unspecified FURCOLO,MARVIN IHE Encounter Template Text not used by [place] Assessments - Encounter Diagnoses This section includes the primary and secondary diagnoses documented for the Encounter. Date/Time Primary/Secondary Diagnosis Diagnosis Name Provider Source Jan 02, 2024 12:04 PM PRIMARY Parkinsonism, unspecified FURCOLO,MARVIN [facility] Jan 02, 2024 12:04 PM SECONDARY Carcinoma in situ of prostate FURCOLO,MARVIN [facility] Jan 02, 2024 12:04 PM SECONDARY Essential (primary) hypertension FURCOLO,MARVIN [facility] Jan 02, 2024 12:04 PM SECONDARY Pure hypercholesterolem ia, unspecified FURCOLO,[facility] Plan of Treatment: Future Appointments (+ 6 months) and Future Tests (+/- 45 days) The Plan of Treatment section includes future care activities for the patient from all [place] [facility]. This section includes future appointments and future orders which are active, pending or scheduled. Active, Pending, and Scheduled Orders This section includes a listing of several types of active, pending, and scheduled orders, including clinic medications orders, diagnostic test orders, procedure orders and consult orders; where the start date of the order is 45 days before the date of the Encounter or 45 days after the date of theEncounter. The data comes from all [place] treatment facilities. Test Date/Time Test Type Test Details Facility Name Nov 30, 2023 12:00 AM Laboratory - Chemi stry Order BASIC METABOLIC PANEL (non-fasting) BLOOD (SST-SERUM) [facility] Nov 30, 2023 12:00 AM Laboratory - Chemi stry Order LIPID PANEL, NON FASTING BLOOD (SST-SERUM) [facility] Lab Results: +/- 30 days of the encounter This section includes the Chemistry and Hematology Lab Results on record with [facility] for the patient. Radiology Reports and Pathology Reports are provided separately, in subsequent sections. Lab Results This section contains the Chemistry/Hematology Results that were resulted 30 days before or 30 daysafter the date of the Encounter. Date/Time Source Result Type Result - Unit Interpretation Reference Range Specimen Type Comment Dec 22, 2023 07:48 AM [facility] BASIC METABOLIC PANEL (non-fasting) SERUM Spe cimen Type: SERUM No comment entered. Ordering Provider: MARVIN ARMSTRONG Report Released Date/Time: Dec 14, 2023 07:34 PM Reporting Lab: [address] [id number] Performing Lab: [address] [address] UREA NITROGEN 23 mg/dL 7-25 GLUCOSE 100 mg/dL 65-100 SODIUM 141 mmol/L 135-145 POTASSIUM 3.8 mmol/L 3.5-5.0 CHLORIDE 104 mmol/L 100-110 CO2 28 meq/L 20-30 CREATININE, Serum 1.39 mg/dL 0.50-1.40 eGFR(CKD-EPI 2020) 53 mL/min L >60 Dec 22, 2023 07:48 AM [facility] LIPID PANEL, NON FASTING SERUM Specimen Type: SERUM No comment entered. Ordering Provider: MARVIN ARMSTRONG Report Released Date/Time: Dec 14, 2023 07:34 PM Reporting Lab: [address] [id number] Performing Lab: [address] [id number] CHOLESTEROL 160 mg/dL TRIGLYCERIDE 88 mg/dL 0-150 LDL calculated 79 mg/dL 0-129 CHOL/HDL 2.5 HDL CHOLESTEROL 63 mg/dL H 40-60 Vital Signs: All taken on the encounter date This section contains inpatient and outpatient Vital Signs collected on the date of the Encounter. Date/Time Temperature Pulse Blood Pressure Respiratory Rate SP02 Pain Height Weight Body Mass Index Source Jan 02, 2024 09:09 AM 97.7 52 130/66 16 98 0 190 27 [facility] Social History: Smoking Status (Most current) and Tobacco Use (All prior to encounter date) This section includes the most current, and the historical, smoking and tobacco- related health factors from the [place] facility where the Encounter took place. Current Smoking Status This section includes the most current smoking, or tobacco-related health factor, from the [place] facility where the Encounter took place. Date/Time Current Smoking Status Comment Alejandro ity Feb 14, 2023 09:30 AM VA-TOBACCO NEVER USED [facility] Tobacco Use History This section includes a history of the smoking, or tobacco-related health factors, that were collected on or before the date of the Encounter. The data comes from the [place] facility where the Encounter took place. Date/Time Smoking Status/Tobacco Use Comment F acility Jan 04, 2022 09:30 AM [facility]CO [facility] Apr 24, 2020 09:30 AM VA-TOBACCO NEVER USED [place] [facility] [place] [facility] Apr 12, 2019 10:51 AM [facility]AC[facility] [place] [facility] Apr 01, 2013 10:51 AM LIFETIME NON-TOBACCO USER [facility] Advance Directives: All historical and current Section Date Range: From patient's date of to the date document was created. This section includes ALL of a patient's completed or amended [place] Advance and Rescinded Directives. The entries below indicate that a directive exists for the patient, but an actual copy is not included with this document. The data comes from all [place] facilities. Date Advance Directives Provider Source May 10, 2019 ADVANCE DIRECTIVE EV DAVIDSON [facility] Encounter Notes: All associated encounter notes This section contains the clinical notes associated to the Encounter. Date/Time Encounter Note(s) Provider Source Jan 02, 2024 09:40 AM PHYSICIAN NOTE: LOCAL TITLE: MD NOTE STANDARD TITLE: PHYSICIAN NOTE DATE OF NOTE: JAN 02, 2024@09:40 ENTRY DATE: JAN 02, 2024@09:40:45 AUTHOR: MARVIN ARMSTRONG COSIGNER: URGENCY: STATUS: COMPLETED LAMBERTO BUITRAGO is a 73 year old WHITE MALE who is being seen today in primary care for routine follow up. saw neurologist at [facility] no new meds. never took sinemet = CARE TEAM = Community Primary Care Provider: Dr. Arvizu (prior to that Dr. Hurley [facility] [place] Specialists: Community Specialists: neurology- [facility] urologist- Dr. Celestin ortho- [facility] opthalmology- Dr. 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 still feels woozy in the morning when he wakes up. no falls. B can be low at home 100-110/80. = RELEVANT PAST MEDICAL HISTORY = Active problems - Computerized Problem List is the source for the followin. Blind right eye 2. Tinnitus 3. Exposure to potentially hazardous substance Connect Snomed Code to ICD 10 Code refer to note dated 02/14/23 4. Parkinsonism 5. Prostate cancer 6. Hypercholesterolemia 7. Benign prostatic hyperplasia 8. Erectile dysfunction (SNOMED CT [id number]) 9. Essential hypertension = PAST SURGICAL HISTORY = bone spurs removed from rigth shoulder = FAMILY HISTORY = Mother: esophageal CA- + tobacco Father: , Alzheimers in 80s Siblings: 7- one has lung CA 4 siblings have - all were smokers- smoking related cancers one sister committed sister Maternal uncles- 2 had Parkinson = SOCIAL HISTORY = Background: born and raised in [place], [place], completed 8th, went back to [employer] after [facility] Sexual Orientation: heterosexual Marital Status: 55 years- Feli Children: 2 - son in [place], daughter lives in [place] Lives with: 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, 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, 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 Alcohol Use: few beers occasionally Tobacco Use: never Drug Use: none Exercise: very active for work, walked 3 miles a day in [place] = ALLERGIES = Patient has answered NKA = MEDICATIONS = Active and Recently Outpatient Medications (excluding Supplies): Active Outpatient Medications Status 1) ATORVASTATIN CALCIUM 20MG TAB TAKE ONE-HALF TABLET BY ACTIVE MOUTH ONCE DAILY 2) CARBAMIDE PEROXIDE 6.5% OTIC SOLN INSTILL 5 DROPS ACTIVE INTO THE AFFECTED EAR(S) ONCE DAILY FOR EAR WAX BLOCKAGE (USE DIRECTED) 3) METOPROLOL SUCCINATE 25MG SA TAB TAKE ONE TABLET BY ACTIVE MOUTH ONCE DAILY FOR BLOOD PRESSURE/HEART 4) SODIUM FLUORIDE 1.1% TOOTHPASTE BRUSH SMALL AMOUNT TO ACTIVE TEETH TWICE DAILY FOR TOOTH DECAY PREVENTION 5) TAMSULOSIN HCL 0.4MG CAP TAKE ONE CAPSULE BY MOUTH AT ACTIVE BEDTIME Active Non-VA Medications Status 1) Non-VA CHOLECALCIF 50MCG (D3-2,000UNIT) TAB 50MCG BY ACTIVE MOUTH ONCE DAILY 2) Non-VA GLUCOSAMINE CAP/TAB EVERY MORNING ACTIVE 3) Non-VA LOSARTAN 25MG TAB 25MG BY MOUTH ONCE DAILY ACTIVE 4) Non-VA MULTIVITAMIN/MINERALS CAP/TAB 1 TABLET BY ACTIVE MOUTH EVERY MORNING 5) Non-VA SILDENAFIL CITRATE 100MG TAB 100MG BY MOUTH ACTIVE ONCE A WEEK 6) Non-VA TAMSULOSIN HCL 0.4MG CAP 0.4MG BY MOUTH ONCE ACTIVE DAILY 11 Total Medications = REVIEW OF SYMPTOMS = POSITIVE FOR: tremor NEGATIVE FOR: CONSTITUTION: no weight loss/gain, fatigue, fevers, night sweats HEENT: no vision problems, hearing loss,swallowing difficulties, sinus pain CV: no chest pain, palpitations, dyspnea on exertion, orthopnea RESP: no cough, shortness of breath, wheezing GI: no abdominal pain, N/V/D, constipation, blood in stool, normal appetite : no urinary frequency, nocturia, hematuria MUSC: no joint pain, joint swelling, muscle aches NEURO: no headaches, dizziness, memory loss, tremor, weakness PSYCH: no depression, anxiety, suicidal or homicidal thoughts SKIN: no rash, new skin lesions = PHYSICAL EXAM = Vitals: - - - - - - - B/P: 130/66 (01/02/2024 09:09) pulse: 52 (01/02/2024 09:09) resp: 16 (01/02/2024 09:09) temp: 97.7 F [36.5 C] (01/02/2024 09:09) Ht: 70 in [177.8 cm] (07/13/2023 09:33) Wgt: 190 lb [86.18 kg] (01/02/2024 09:09) BMI: BMI: 27.3 Exam: - - - - - - - RRR S1 S2 LCTA bilat = RECENT LABS = LAB CHEMISTRY & HEMATOLOGY Collection DT Specimen Test Name Result Units Ref Range 12/22/2023 07:48 SERUM CREATININE, Serum 1.39 mg/dL 0.50 - 1.40 eGFR(CKD-EPI 2020 53 L mL/min Ref: >=60 SODIUM 141 mmol/L 135 - 145 POTASSIUM 3.8 mmol/L 3.5 - 5.0 CHLORIDE 104 mmol/L 100 - 110 CO2 28 mEq/L 20 - 30 UREA NITROGEN 23 mg/dL 7 - 25 GLUCOSE 100 mg/dL 65 - 100 CHOLESTEROL 160 mg/dL <7 - 199 TRIGLYCERIDE 88 mg/dL 0 - 150 LDL calculated 79 mg/dL 0 - 129 CHOL/HDL 2.5 HDL CHOLESTEROL 63 H mg/dL 40 - 60 = ASSESSMENT AND PLAN = 1. tremor- mostly a head tremor- recently seen [facility] [place] neurologist- no med changes- did not feel needed medication. never took sinemet that Dr. huynh prescribed. has not felt metoprolol has made any impact on tremor either 2. HTN- ok to decrease metoprolol from 25 mg to 1/2 tab - 12.5 mg daily. currenly also on losartan. 3. hyperlipidemia- on statin, good lipid panel 4. prostate ca- s/p radiation tx in 2020, sees Dr. Celestin. yearly surveillance psa = HEALTH MAINTENANCE = Colonoscopy - 08/24/16- [facility] Abdominal Aortic Aneurysm Screening- n/a never smoked Prostate screening - [facility] cancer 2020 Tetanus: due every 10 years Pneumonia Vacccine: Flu Vaccine: received already Covid Vaccine: due yearly = FOLLOW UP = f/u in 6 mo VISIT TYPE: a MODERATE complexity visit where 30 minutes was spent in direct patient care, review of records and documentation. /josee/ MARVIN ARMSTRONG D.O. PHYSICIAN Signed: 01/02/2024 12:10 MARVIN ARMSTRONG [place] [facility] [place] [facility] Jan 02, 2024 09:10 AM PREVENTIVE MEDICINE NURSING NOTE: LOCAL TITLE: CLINICAL REMINDERS/NURSING STANDARD TITLE: PREVENTIVE MEDICINE NURSING NOTE DATE OF NOTE: JAN 02, 2024@09:10 ENTRY DATE: JAN 02, 2024@09:10:33 AUTHOR: ALEJANDRO LIMA EXP COSIGNER: URGENCY: STATUS: COMPLETED Influenza Immunization: The patient has received the seasonal influenza vaccine for the current season at another location. Documented: INFLUENZA, UNSPECIFIED FORMULATION Historical Date Administered: Dec 21, 2023 Series: Booster Outside Location: Outside Healthcare Provider Information Source: FROM OTHER PROVIDER /es/ ALEJANDRO LIMA LPN Signed: 01/02/2024 09:11 URSULA LIMA [facility] [facility]
--- OUTSIDE RECORDS SUMMARY | 2024-07-15 13:34 | XMS_ITS | Encounter Summary ---
Author Name [facility] [place] Address [address] [place] [address] Care Team Providers Care Packer Sausage And Wiener Name Role Phone MARVIN ARMSTRONG Primary Care [...] Hsu's Name Patient's Relationship to Policy Hsu [facility] MEDICARE SUPPLEMEN WILIAM MEDEX 2 Jan 02, 2020 [id number] TREY BUITRAGO WING PATIENT MEDICARE (WNR) MEDICARE (M) PART A Mar 03, 2013 PART A [id number] TREY BUITRAGO WING PATIENT MEDICARE (WNR) MEDICARE (M) PART B Mar 03, 2013 PART B [id number] TREY BUITRAGO WING PATIENT Selected Encounter This section includes the information on record at [place] for the Encounter. Date/Time Encounter Type Encounter Description Reason Provider Source Sep 11, 2023 11:00 AM HEARING SERVICE AUDIOLOGY ICD-10-CM Z46.1 Encounter for fitting and adjustment of hearing aid COLTON KANG Elissa Encounter Template Text not used by [place] Assessments - Encounter Diagnoses This section includes the primary and secondary diagnoses documented for the Encounter. Date/Time Primary/Secondary Diagnosis Diagnosis Name Provider Source Sep 11, 2023 11:44 AM PRIMARY Encounter for fitting and adjustment of hearing aid COLTON K[facility] Sep 11, 2023 11:44 AM SECONDARY Sensorineural hearing loss, bilateral JORGE LUISCOLTON Bowers [facility] Plan of Treatment: Future Appointments (+ 6 months) and Future Tests (+/- 45 days) The Plan of Treatment section includes future care activities for the patient from all [place] [facility]. This section includes future appointments and future orders which are active, pending or scheduled. Future Appointments This section includes appointments that were scheduled to occur 6 months from the date of the Encounter, up to a maximum of 20 appointments. The data comes from all [place] treatment facilities. Appointment Date/Time Appointment Type Appointme nt Facility Name Dec 05, 2023 11:00 AM [facility] Dec 18, 2023 08:30 AM AMBULATORY - NONE [facility] Dec 18, 2023 09:40 AM [facility]UL[facility] Jan 02, 2024 09:30 AM AMBULATORY - MEDICINE [facility] Social History: Smoking Status (Most current) and Tobacco Use (All prior to encounter date) This section includes the most current, and the historical, smoking and tobacco- related health factors from the [place] facility where the Encounter took place. Current Smoking Status This section includes the most current smoking, or tobacco-related health factor, from the [place] facility where the Encounter took place. Date/Time Current Smoking Status Comment Facil ity Feb 14, 2023 09:30 AM VA-TOBACCO NEVER USED [facility] Tobacco Use History This section includes a history of the smoking, or tobacco-related health factors, that were collected on or before the date of the Encounter. The data comes from the [place] facility where the Encounter took place. Date/Time Smoking Status/Tobacco Use Comment F acility Jan 04, 2022 09:30 AM VA-TOBACCO [facility] Apr 24, 2020 09:30 AM VA-TOBACCO NEVER USED [place] [facility] [place] [facility] Apr 12, 2019 10:51 AM VA-TOBACCO NEVER USED [place] [facility] Apr 01, 2013 10:51 AM LIFETIME NON-TOBACCO USER [facility] Advance Directives: All historical and current Section Date Range: From patient's date of to the date document was created. This section includes ALL of a patient's completed or amended [place] Advance and Rescinded Directives. The entries below indicate that a directive exists for the patient, but an actual copy is not included with this document. The data comes from all [place] facilities. Date Advance Directives Provider Source May 10, 2019 ADVANCE DIRECTIVE EV DAVIDSON [facility] Encounter Notes: All associated encounter notes This section contains the clinical notes associated to the Encounter. Date/Time Encounter Note(s) Provider Source Sep 11, 2023 10:01 AM AUDIOLOGY E & M NO TE: LOCAL TITLE: AUDIOLOGY CLINIC STANDARD TITLE: AUDIOLOGY E & M NOTE DATE OF NOTE: SEP 11, 2023@10:01 ENTRY DATE: SEP 11, 2023@10:01:31 AUTHOR: COLTON KANG COSIGNER: URGENCY: STATUS: COMPLETED AUDIOLOGY CLINIC Has ADDENDA Diagnosis: bilateral sensorineural hearing loss Hearing Aid Fitting: SUBJECTIVE (S): The Ryegate was seen for hearing aid fitting and issuance. S/He had previously been evaluated and found to exhibit significant hearing loss for which amplification was recommended. How does the patient/client best learn? verbal instruction, demonstration Does the patient/client have any cultural and zoroastrian beliefs, emotional barriers, physical or cognitive limitations, and communication barriers which may impact his/her ability to learn? no Desire and motivation to learn? Good OBJECTIVE (O): Physical fit of earmolds/receivers and domes/hearing aids was good. verified comfort. Verification of an appropriate acoustic response was obtained using Real Ear measurements (speech mapping) and NAL- NL2 targets. The reported good subjective benefit as well. Feedback senior mechanical project manager was run. Hearing aids were found to be meeting targets adequately and MPO was not exceeding estimated UCL. Settings stored in NAVYA. ASSESSMENT (A): The following device(s) was/were issued: Make: Signia Model: Pure 312 7AX RICs Serial Numbers: [id number] / [id number] Battery size: 312 Trial Period ends: 02-07-24 Domes/wax guards, etc.: small vented sleeve/nanocare Earmold Information: n/a Practice Professional size/power: 3/46dB S Program Settings (VC, Programs, Buttons): VCs enabled, linked Fitting Formula: NAL-NL2 Remote programming: capable Counseling was completed today throughout todays appointment using a standardized curriculum that includes but is not limited to; realistic expectations with amplification in adverse listening environments, acclimatization to own voice and environmental sounds (following real-ear measurements), the importance of consistent use of amplification, proper insertion/removal, care and maintenance (including wax guards/domes if applicable), signal and alerts of devices, and charging/batteries. The was provided the opportunity to practice in office and reports confidence/understanding in all items reviewed. was given written reference materials today. The Ryegate was informed of and agreed to [place] policy on hearing aid issuance: Users are responsible for the maintenance and security of their devices. Determination of need to replace a hearing aid is made by the [place] visual education teacher. Hearing aids will not be replaced in cases of neglect, abuse, or excessive loss. Items issued are for personal use only. Prognosis for successful hearing aid use is good. PLAN (P): 1. Contact clinic with any problems/concerns. 2. The International Outcome Inventory-Hearing Aids (IOI-HOGAN) will be mailed to the in four weeks. He/she was asked to mail back to clinic after completion. Patient Education Education provided on the following topics: hearing aid management Education provided to: P Response to Education: LUCÍA RD, PI Fernandez Patient P Family F Significant Other SO Verbalizes Understanding VU Returns Demonstration RD Performs Independently PI Lacks Comprehension LC Refused Education RE Not Applicable NA /josee/ Neha ZHAO, [facility]-A STAFF PRODUCTION LINE MANAGER Signed: 09/11/2023 11:44 10/25/2023 ADDENDUM STATUS: COMPLETED Ryegate returned IOI-HOGAN Outcome Measure to the clinic via mail with an overall score of 25 Based on this score: i. No follow-up call is indicated _XX_ ii. Follow-up call is indicated and fitting clinician will be notified __ /es/ LEIDY STARK Audiology Health Rn Cardiac Signed: 10/25/2023 08:09 COLTON KANG [facility]
--- OUTSIDE RECORDS SUMMARY | 2024-07-15 13:34 | XMS_ITS | Encounter Summary ---
Author Organization [employer] Address [address] [place] [address] [address] [place] [address] Care Team Providers Care Tone Regulator Name Role Phone Unavailable Primary Care Provider Unavailabl e Encounter Details Date Type Department Care Team (Latest Contact Info) Description 03/18/2019 Abstract C CONVERSIONS Dental, Provider, DDS Social History Tobacco Use Types Packs/Day Years Used Date Smoking Tobacco: Never Assessed Sex and Gender Information Value Date Recorded Sex Assigned at Male 01/31/2022 10:24 AM EDT Legal Sex Male 10:24 AM EDT Gender Identity Male 01/31/2022 10:24 AM EDT Sexual Orientation Straight 01/31/2022 10 :24 AM EDT documented as of this encounter Plan of Treatment Not on file documented as of this encounter Visit Diagnoses Not on filedocumented in this encounter
--- OUTSIDE RECORDS SUMMARY | 2024-07-15 13:34 | XMS_ITS | Encounter Summary ---
Author Name [facility] [facility] [place] [facility] [place] Address [address] [place] [address] Care Team Providers Care Hall Coordinator Name Role Phone MARVIN ARMSTRONG Primary Care [...] Hsu's Name Patient's Relationship to Policy Hsu [place] SUPPLEMEN WILIAM MEDEX 2 Jan 02, 2020 [id number] TREY BUITRAGO PATIENT MEDICARE (WNR) MEDICARE (M) PART A Mar 03, 2013 PART A [id number] TREY BUITRAGO WING PATIENT MEDICARE (WNR) MEDICARE (M) PART B Mar 03, 2013 PART B [id number] TREY BUITRAGO PATIENT Selected Encounter This section includes the information on record at [place] for the Encounter. Date/Time Encounter Type Encounter Description Reason Provider Source Jul 15, 2024 08:30 AM CASE MGMT-ORAL HEALTH LIT DENTAL ICD-10-CM K03.6 Deposits [accretions] on teeth VINITA GARRETT IHE Encounter Template Text not used by [place] Assessments - Encounter Diagnoses This section includes the primary and secondary diagnoses documented for the Encounter. Date/Time Primary/Secondary Diagnosis Diagnosis Name Provider Source Jul 15, 2024 09:21 AM PRIMARY Deposits [accretions] on teeth [facility]INITA [facility]AR[facility]TT [facility] Plan of Treatment: Future Appointments (+ 6 months) and Future Tests (+/- 45 days) The Plan of Treatment section includes future care activities for the patient from [facility] [place] [facility] This section includes future appointments and future orders which are active, pending or scheduled. Future Appointments This section includes appointments that were scheduled to occur 6 months from the date of the Encounter, up to a maximum of 20 appointments. The data comes from all [place] treatment facilities. Appointment Date/Time Appointment Type Appointme nt Facility Name August 05, 2024 09:30 AM AMBULATORY - MEDICINE [facility] Sep 11, 2024 08:30 AM AMBULATORY - MEDICINE [facility] Active, Pending, and Scheduled Orders This section includes a listing of several types of active, pending, and scheduled orders, including clinic medications orders, diagnostic test orders, procedure orders and consult orders; where the start date of the order is 45 days before the date of the Encounter or 45 days after the date of theEncounter. The data comes from all [place] treatment facilities. Test Date/Time Test Type Test Details Facility Name Jul 02, 2024 12:00 AM Laboratory - Chemistry Order PSA BLOOD (SST-SERUM) [facility] Jul 05, 2024 04:43 PM Consult Order COMMUNITY CARE-NEUROLOGY Cons Associate Product Manager's Choice [facility] Jul 05, 2024 04:43 PM Consult Order RESPIRATORY THERAPY/ [facility] OUTPT Cons Associate Product Manager's Choice [facility] Social History: Smoking Status (Most current) and Tobacco Use (All prior to encounter date) This section includes the most current, and the historical, smoking and tobacco- related health factors from the [place] facility where the Encounter took place. Current Smoking Status This section includes the most current smoking, or tobacco-related health factor, from the [place] facility where the Encounter took place. Date/Time Current Smoking Status Comment Alejandro urbina Feb 14, 2023 09:30 AM VA-TOBACCO NEVER USED [facility] Tobacco Use History This section includes a history of the smoking, or tobacco-related health factors, that were collected on or before the date of the Encounter. The data comes from the [place] facility where the Encounter took place. Date/Time Smoking Status/Tobacco Use Comment F acility Jan 04, 2022 09:30 AM VA-TOBACCO NEVER USED [facility] Apr 24, 2020 09:30 AM VA-TOBACCO NEVER USED [facility] Apr 12, 2019 10:51 AM VA-TOBACCO NEVER USED [facility] Apr 01, 2013 10:51 AM LIFETIME NON-TOBACCO USER [facility] Advance Directives: All historical and current Section Date Range: From patient's date of to the date document was created. This section includes ALL of a patient's completed or amended [place] Advance and Rescinded Directives. The entries below indicate that a directive exists for the patient, but an actual copy is not included with this document. The data comes from all [place] facilities. Date Advance Directives Provider Source May 10, 2019 ADVANCE DIRECTIVE EV DAVIDSON [facility] Encounter Notes: All associated encounter notes This section contains the clinical notes associated to the Encounter. Date/Time Encounter Note(s) Provider Source Jul 15, 2024 08:21 AM DENTISTRY NOTE: LOCAL TITLE: DENTAL NOTE STANDARD TITLE: DENTISTRY NOTE DATE OF NOTE: JUL 15, 2024@08:21 ENTRY DATE: JUL 15, 2024@09:21:33 AUTHOR: JUAQUIN GARRETT EXP COSIGNER: URGENCY: STATUS: COMPLETED Patient Name: LAMBERTO BUITRAGO, : 1950, Age: 74 Visit: S: Jul 15, 2024@08:[address] [facility] [address] AM. Primary PCE Diagnosis: K03.6 (Deposits [accretions] on teeth). Dental Category: 15-OPC, Class IV. Treatment Status: Maintenance. Completed Care: (D1110) DENTAL PROPHYLAXIS ADULT. DX: K03.6 Deposits [Accretions] on Teeth (D1206) TOPICAL FLUORIDE VARNISH. DX: K03.6 Deposits [Accretions] on Teeth (D1330) ORAL HYGIENE INSTRUCTION. DX: K03.6 Deposits [Accretions] on Teeth (D9994) CASE MGMT-ORAL HEALTH LIT. DX: K03.6 Deposits [Accretions] on Teeth Periodontal Screening/Recording (PSR): 3-2-3 - - - 3-2-3 TIME OUT/Safety goals were verified immediately prior to the procedure. (Correct patient, procedure, site, position) Full name and date used. STERILIZATION MONITOR IN INSTRUMENT PACK CHECKED AND CONFIRMED CC: NONE PAST MEDICAL HISTORY: Reviewed, no contraindications for treatment LAST RADIOGRAPHS: BWX 07/25 NEW RADIOGRAPHS: not due SOFT TISSUE SCREENING: no abnormalities noted EXAMINATION: not due ORAL HYGIENE ASSESSMENT: plaque light stain light PERIODONTAL ASSESSMENT: calculus light inflamation light bop light probing deepth 2-4 mm recession general REVIEWED ORAL HEALTH REPORT: CARIES RISK: moderate GUM DISEASE: high ORAL CANCER RISK: low DENTAL TREATMENT PROVIDED: PROPHYLAXIS: hand scaling, piezo, slovenian 30 L chipped no pain no discomfort TOPICAL FLUORIDE APPLICATION - [place] pre post procedular rinse 30 sec ORAL HYGIENE INSTRUCTIONS GIVEN TO PATIENT: Discuss Benefits of flossing: Reduces bad breath Helps prevent gum disease Reduces the risk of cavities. [place] the teeth for 2 minutes twice daily with a soft-bristle manual or electric toothbrush your preference. Use fluoride toothpaste. Be sure to brush all surfaces. Replace the toothbrush every 3 to 4 months, or more often if the bristles are matted or frayed. Choose a brush with the ADA seal of acceptance. Pt understood. DISPOSITION: 6 MONTHS RECARE Oral Health Assessment Findings: Plaque Index: 1 - Slight Xerostomia: 1 - Slight Caries Risk: 3 - High Oral Hygiene: 3 - Poor NV: 6 mo recall 4 bwx reena check # 30 L /josee/ JUAQUIN GARRETT [facility], DENTAL SERVICE Signed: 07/15/2024 09:21 JUAQUIN GARRETT [facility]
--- OUTSIDE RECORDS SUMMARY | 2024-07-15 13:34 | XMS_ITS | Encounter Summary ---
Author Name [facility] [place] Organization [facility] Address [address] [place] [address] Care Team Providers Care Hot Repairman Name Role Phone MARVIN ARMSTRONG Primary Care [...] Hsu's Name Patient's Relationship to Policy Hsu [facility] MEDICARE SUPPLEMEN WILIAM MEDEX 2 Jan 02, 2020 [id number] MINNATREY WING PATIENT MEDICARE (WNR) MEDICARE (M) PART A Mar 03, 2013 PART A [id number] TREY BUITRAGO WING PATIENT MEDICARE (WNR) MEDICARE (M) PART B Mar 03, 2013 PART B [id number] TREY BUITRAGO WING PATIENT Selected Encounter This section includes the information on record at [place] for the Encounter. Date/Time Encounter Type Encounter Description Reason Pro vider Source Jul 12, 2024 09:13 AM Outpatient Encounter DENTAL IHE Encounter Template Text not used by [place] Plan of Treatment: Future Appointments (+ 6 months) and Future Tests (+/- 45 days) The Plan of Treatment section includes future care activities for the patient from [facility] [place] [facility]. This section includes future appointments and future orders which are active, pending or scheduled. Future Appointments This section includes appointments that were scheduled to occur 6 months from the date of the Encounter, up to a maximum of 20 appointments. The data comes from all [place] treatment facilities. Appointment Date/Time Appointment Type Appointme nt Facility Name Jul 15, 2024 08:30 AM AMBULATORY - NONE [facility] Jul 15, 2024 11:30 AM [facility] August 05, 2024 09:30 AM [facility] Sep 11, 2024 08:30 AM AMBULATORY - MEDICINE [facility] Active, Pending, and Scheduled Orders This section includes a listing of several types of active, pending, and scheduled orders, including clinic medications orders, diagnostic test orders, procedure orders and consult orders; where the start date of the order is 45 days before the date of the Encounter or 45 days after the date of theEncounter. The data comes from all [facility]. Test Date/Time Test Type Test Details Facility Name Jul 02, 2024 12:00 AM Laboratory - Chemistry Order PSA BLOOD (SST-SERUM) SP [facility] Jul 05, 2024 04:43 PM Consult Order COMMUNITY CARE-NEUROLOGY Cons Stripper And Opaquer Apprentice's Choice [facility] Jul 05, 2024 04:43 PM Consult Order RESPIRATORY THERAPY/ [facility] OUTPT Cons [employer]pper [employer] [place]pa[employer] Apprentice's Choice [facility] Social History: Smoking Status (Most current) and Tobacco Use (All prior to encounter date) This section includes the most current, and the historical, smoking and tobacco- related health factors from the [place] facility where the Encounter took place. Current Smoking Status This section includes the most current smoking, or tobacco-related health factor, from the [place] facility where the Encounter took place. Date/Time Current Smoking Status Comment Alejandro urbina Feb 14, 2023 09:30 AM VA-TOBACCO NEVER USED [facility] Tobacco Use History This section includes a history of the smoking, or tobacco-related health factors, that were collected on or before the date of the Encounter. The data comes from the [place] facility where the Encounter took place. Date/Time Smoking Status/Tobacco Use Comment F acility Jan 04, 2022 09:30 AM VA-TOBACCO NEVER USED [facility] Apr 24, 2020 09:30 AM VA-TOBACCO NEVER USED [place] [facility] Apr 12, 2019 10:51 AM VA-TOBACCO NEVER USED [facility] Apr 01, 2013 10:51 AM LIFETIME NON-TOBACCO USER [facility] Advance Directives: All historical and current Section Date Range: From patient's date of to the date document was created. This section includes ALL of a patient's completed or amended [place] Advance and Rescinded Directives. The entries below indicate that a directive exists for the patient, but an actual copy is not included with this document. The data comes from all [place] facilities. Date Advance Directives Provider Source May 10, 2019 ADVANCE DIRECTIVE EV DAVIDSON [facility] Encounter Notes: All associated encounter notes This section contains the clinical notes associated to the Encounter. Date/Time Encounter Note(s) Provider Source Jul 12, 2024 09:13 AM DENTISTRY TELEPHON E ENCOUNTER NOTE: LOCAL TITLE: TELEPHONE NOTE/DENTAL STANDARD TITLE: DENTISTRY TELEPHONE ENCOUNTER NOTE DATE OF NOTE: JUL 12, 2024@09:13 ENTRY DATE: JUL 12, 2024@09:13:55 AUTHOR: GUILLERMINA HAUSER EXP COSIGNER: URGENCY: STATUS: COMPLETED Called pt and LM to confirm dental appointment on 07/15/2024 at 8:30 am. /josee/ GUILLERMINA HAUSER ADVANCED CARD FOLDER Signed: 07/12/2024 09:14 GUILLERMINA HAUSER [facility]
--- OUTSIDE RECORDS SUMMARY | 2024-07-15 13:34 | XMS_ITS ---
Author Name [facility] Address [address] [place] [address] Care Team Providers Care Technical Sales Consultant Name Role Phone PATTI MARVIN Primary Care Provider Unavailabl e Insurance Providers: [...] Hsu's Name Patient's Relationship to Policy Hsu [facility] MEDICARE SUPPLEMEN WILIAM MEDEX 2 Jan 02, 2020 [id number] TREY BUITRAGO PATIENT MEDICARE (WNR) MEDICARE (M) PART A Mar 03, 2013 PART A [id number] TREY BUITRAGO WING PATIENT MEDICARE (WNR) MEDICARE (M) PART B Mar 03, 2013 PART B [id number] TREY BUITRAGO PATIENT Selected Encounter This section includes the information on record at [place] for the Encounter. Date/Time Encounter Type Encounter Description Reason Provider Source Sep 06, 2023 09:00 AM COMPRE OPH EXAM EST PT 1/> OPTOMETRY ICD-10-CM H25.813 Combined forms of age-related cataract, bilateral CECILIA HUGO Elissa Encounter Template Text not used by [place] Assessments - Encounter Diagnoses This section includes the primary and secondary diagnoses documented for the Encounter. Date/Time Primary/Secondary Diagnosis Diagnosis Name Provider Source Sep 29, 2023 03:40 PM PRIMARY Combined forms of age-related cataract, bilateral CECILIA HUGO [facility] [place] [facility] Sep 29, 2023 03:40 PM SECONDARY Presbyopia [facility] Sep 29, 2023 03:40 PM SECONDARY Refractive amblyopia, right eye [facility] HU[facility] Plan of Treatment: Future Appointments (+ 6 months) and Future Tests (+/- 45 days) The Plan of Treatment section includes future care activities for the patient from all [facility] [place] This section includes future appointments and future orders which are active, pending or scheduled. Future Appointments This section includes appointments that were scheduled to occur 6 months from the date of the Encounter, up to a maximum of 20 appointments. The data comes from all [place] treatment facilities. Appointment Date/Time Appointment Type Appointme nt Facility Name Sep 11, 2023 11:00 AM AMBULATORY - REHAB MEDICIN E [facility] [place] [facility] Dec 05, 2023 11:00 AM AMBULATORY - MEDICINE [facility] [place] [facility] Dec 18, 2023 08:30 AM AMBULATORY - NONE [facility] [place] [facility] Dec 18, 2023 09:40 AM AMBULATORY - MEDICINE [facility] [place] [facility] Jan 02, 2024 09:30 AM [facility] Social History: Smoking Status (Most current) and Tobacco Use (All prior to encounter date) This section includes the most current, and the historical, smoking and tobacco- related health factors from the [facility] facility where the Encounter took place. Current Smoking Status This section includes the most current smoking, or tobacco-related health factor, from the VA facility where the Encounter took place. Date/Time Current Smoking Status Comment Facil ity Feb 14, 2023 09:30 AM VA-TOBACCO NEVER USED [facility] Tobacco Use History This section includes a history of the smoking, or tobacco-related health factors, that were collected on or before the date of the Encounter. The data comes from the [place] facility where the Encounter took place. Date/Time Smoking Status/Tobacco Use Comment F acility Jan 04, 2022 09:30 AM VA-TOBACCO [facility] USED [facility] Apr 24, 2020 09:30 AM [facility]TOBACCO NEVER USED [facility] Apr 12, 2019 10:51 AM VA-TOBACCO NEVER USED [facility] Apr 01, 2013 10:51 AM LIFETIME NON-TOBACCO USER [facility] Advance Directives: All historical and current Section Date Range: From patient's date of to the date document was created. This section includes ALL of a patient's completed or amended [place] Advance and Rescinded Directives. The entries below indicate that a directive exists for the patient, but an actual copy is not included with this document. The data comes from all [place] facilities. Date Advance Directives Provider Source May 10, 2019 ADVANCE DIRECTIVE EV DAVIDSON [facility] Encounter Notes: All associated encounter notes This section contains the clinical notes associated to the Encounter. Date/Time Encounter Note(s) Provider Source Sep 06, 2023 08:57 AM OPTOMETRY NOTE: LOCAL TITLE: OPTOMETRY NOTE STANDARD TITLE: OPTOMETRY NOTE DATE OF NOTE: SEP 06, 2023@08:57 ENTRY DATE: SEP 06, 2023@08:57:35 AUTHOR: CHACHO CHANCE EXP COSIGNER: CECILIA HUGO URGENCY: STATUS: COMPLETED OPTOMETRY NOTE Has ADDENDA Active problems - Computerized Problem List is the source for the followin. Blind right eye 2. Tinnitus 3. Exposure to potentially hazardous substance 4. Parkinsonism 5. Prostate cancer 6. Hypercholesterolemia 7. Benign prostatic hyperplasia 8. Erectile dysfunction (SNOMED CT [id number]) 9. Essential hypertension Active Outpatient Medications (including Supplies): Active Outpatient Medications Status 1) ATORVASTATIN CALCIUM 20MG TAB TAKE ONE-HALF TABLET BY ACTIVE MOUTH ONCE DAILY 2) CARBAMIDE PEROXIDE 6.5% OTIC SOLN INSTILL 5 DROPS ACTIVE INTO THE AFFECTED EAR(S) ONCE DAILY FOR EAR WAX BLOCKAGE (USE DIRECTED) 3) CARBIDOPA 25/LEVODOPA 100MG TAB TAKE 1 TABLET BY HOLD MOUTH THREE TIMES A DAY FOR PARKINSON SYMPTOMS 4) METOPROLOL SUCCINATE 25MG SA TAB TAKE ONE TABLET BY ACTIVE MOUTH ONCE DAILY FOR BLOOD PRESSURE/HEART 5) SODIUM FLUORIDE 1.1% TOOTHPASTE BRUSH SMALL AMOUNT TO ACTIVE TEETH TWICE DAILY FOR TOOTH DECAY PREVENTION 6) TAMSULOSIN HCL 0.4MG CAP TAKE ONE CAPSULE [...] CAP 0.4MG BY MOUTH ONCE ACTIVE DAILY 12 Total Medications Allergies: Patient has answered NKA All medications including those prescribed by outside VA's, community providers, and all OTC meds were reviewed and reconciled with patient to the best of their abilities. This 73 year old MALE is seen today for comprehensive eye exam. Chief Complaint: Patient here for annual eye exam. Would like to get a new pair of transition PALs today instead of separate sunglasses as he often forgets to bring them with him. Otherwise no vision complaints. Occasionally notices a small 'distortion, like looking through a prism' when he looks to the side. Last for about 10 minutes. Longstanding. Happens in bright light and upon further discussion description is of distortion with polycarbonate lens. OHx: 1. Dilated conjunctival vessel bundle 2. Combined forms of age-related cataracts ou 3. Refractive ambylopia OD 4. Hyperopia, Astigmatism and Presbyopia OU (-) Pain: (-) HOGAN: (-) Diplopia: (-) Flashes: (-) Floaters: (-) Amaurosis Fugax/Tia's: (-) Eye Injury: (-) Eye Surgery: (-) TBI FOHx: (-) Glaucoma/ARMD/Blindness (-) Smoker/Length of Time/PPD: Current Rx with last BCVA: OD: +6.75-0.75 x 030 20/40 isolated letters OS: +6.00-1.50 x 003 20/15-1 Add: +2.50 DVA ( )sc ( x )cc OD: 20/30-2 OS: 20/15-1 Pupils: PERRL (-)APD EOMs: SAFE OU, (-)Pain/Diplopia CVF (facial, peripheral): FTFC OU Subjective Refraction: OD: +6.50-0.31p663 20/30++ OS: +6.25-1.78l121 20/15 Add: +2.50 Final Rx OD: +6.50-0.50 x 030 20/30 OS: +6.25-1.50 x 003 20/15 Add: +2.50 All the above performed by student, reviewed by attending Anterior segment: Performed by student, repeated by attending Lids: heavy dermatochalasis OU w/ hoodwinking OU lids pushing 1-2 lashes onto cornea UL OD Conj: white and quiet OU Cornea: clear OU AC: 4x4 OU Iris: flat and clear OU Lens: 1+ NS OU with 1-2+ ACC OD with Inf-nasal spoking 1+ ACC OS primarily inferior Tonometry: Goldmann Performed by student, reviewed by attending OD 17 mmHg OS 16 mmHg Time: 9:18am Fundus exam: Dilated: 9:22am Dilating Drops: 1GTT 1 % Tropicamide OU & 1GTT 2.5% Phenylephrine OU (Pt. ed. on side effects, dilation warning given and verbal consent obtained) Patient advised not to drive if they feel they have any symptoms which could affect their ability to drive safely. Patient advised not to engage in any activities which could put themselves or others at risk if they feel they have any symptoms which could affect their ability to perform those activities safely. Performed by student, repeated by attending Vit: syneresis OU C/D: 0.3/0.3 OD, 0.3/0.3 OS Macula: flat OU, 1 drusen OS, clear OD PPole: clear OU A/V: 2/3 Vessels: normal caliber OU Periph: flat and intact (-)holes, tears, detachments 360 OU Assessment/Plan: 1. Combined age-related cataracts OU. Not visually significant. Patient ed on etiology of cataracts and symptoms. Patient ed on importance of UV protection in relation to cataracts. Patient expressed understanding. Monitor. 2. Refractive ambylopia OD. Stable, BCVA OD 20/30. Patient ed on condition and findings. Monitor. 3. Hyperopia with presbyopia OU. Patient ed on refractive findings. Ordered new transition PALs today. Monitor. Return to Clinic 1 year or earlier PRN Patient Education: Macular Degeneration: Patient was educated regarding macular degeneration including both wet and dry varieties as well as the natural history and prognosis of this condition. Education included the role of amsler grid testing , ocular nutraceutical therapy as well as diet and healthy lifestyle choices when applicable. Exclusion criteria includes extremely reduced acuity or cognitive decline for amsler grid testing and other coexisting systemic contraindication for supplements, diet and exercise. Medication Reconciliation: Outpatient: Has the patient been taking medications as documented in the EMLR? YES: The patient has been taking medications as documented in the EMLR. Essential Medication List for Review used to complete this medication reconciliation. INCLUDED IN THIS LIST: Alphabetical list of active outpatient prescriptions dispensed from this VA (local) and dispensed from another [place] or [facility] facility (remote) as well as inpatient orders (local, pending and active), local clinic medications, locally documented non-VA medications, and local prescriptions that have or been discontinued in the past 90 days. - All changes in medications, including all non-VA/Herbal/OTC medications were entered into CPRS. - If there were any medications the patient should no longer take, they were discontinued. - The patient/caregiver was instructed to update this list, discard old lists, and take this list to the next appointment, whether with a VA or non-VA provider. Medication List: JLV Link Data on this list may not be complete. Please check [facility]: Elt. Allergies/ADRs (Tool #5) FACILITY ALLERGY/ADR -------- No Remote Allergy/ADR Data available for this patient [place] [facility] [place] [facility] No Known Allergies Med. Reconciliation (Tool #1) INCLUDED IN THIS LIST: Alphabetical list of active outpatient prescriptions dispensed from this VA (local) and dispensed from another [place] or [facility] facility (remote) as well as inpatient orders (local pending and active), local clinic medications, locally documented non-VA medications, and local prescriptions that have or been discontinued in the past 90 days. Non-VA Meds Last Documented On: Dec 24, 2020 NOTE The display of VA prescriptions dispensed from another [place] or [facility] facility (remote) is limited to active outpatient prescription entries matched to National Drug File at the originating site and may not include some items such as investigational drugs, compounds, etc. NOT INCLUDED IN THIS LIST: Medications self-entered by the patient into personal health records (i.e. [facility] [employer]) are NOT included in this list. Non-VA medications documented outside this [place], remote inpatient orders (regardless of status) and remote clinic medications are NOT included in this list. The patient and provider must always discuss medications the patient is taking, regardless of where the medication was dispensed or obtained. OUTPT ATORVASTATIN CALCIUM 20MG TAB (Status = Active) TAKE ONE-HALF TABLET BY MOUTH ONCE DAILY Rx# [id number] Last Released: 08/03/23 Qty/Days Supply: Rx Expiration Date: 08/01/24 Refills Remainin Indication: FOR HIGH CHOLESTEROL OUTPT ATORVASTATIN CALCIUM 40MG TAB (Status = Discontinued) TAKE ONE-HALF TABLET BY MOUTH ONCE DAILY FOR HIGH CHOLESTEROL Rx# [id number] Last Released: 07/17/23 Qty/Days Supply: Rx Expiration Date: 07/14/24 Refills Remainin Indication: FOR HIGH CHOLESTEROL OUTPT CARBAMIDE PEROXIDE 6.5% OTIC SOLN (Status = Active) INSTILL 5 DROPS INTO THE AFFECTED EAR(S) ONCE DAILY FOR EAR WAX BLOCKAGE (USE DIRECTED) Rx# [id number] Last Released: 07/14/23 Qty/Days Supply: Rx Expiration Date: 07/13/24 Refills Remainin Indication: FOR EAR WAX BLOCKAGE OUTPT CARBIDOPA 25/LEVODOPA 100MG TAB (Status = On Hold) TAKE 1 TABLET BY MOUTH THREE TIMES A DAY FOR PARKINSON SYMPTOMS Rx# [id number] Last Released: 05/15/23 Qty/Days Supply: 270/90 Rx Expiration Date: 05/15/24 Refills Remainin Indication: FOR PARKINSON SYMPTOMS Non-VA CHOLECALCIF 50MCG (D3-2,000UNIT) TAB TAKE ONE TABLET BY MOUTH ONCE DAILY Non-VA GLUCOSAMINE CAP/TAB TAKE EVERY MORNING Non-VA LOSARTAN 25MG TAB TAKE ONE TABLET BY MOUTH ONCE DAILY OUTPT METOPROLOL SUCCINATE 25MG SA TAB (Status = Active) TAKE ONE TABLET BY MOUTH ONCE DAILY FOR BLOOD PRESSURE/HEART Rx# [id number] Last Released: 07/17/23 Qty/Days Supply: Rx Expiration Date: 07/13/24 Refills Remainin Indication: FOR HIGH BLOOD PRESSURE Non-VA MULTIVITAMIN/MINERALS CAP/TAB TAKE ONE TABLET BY MOUTH EVERY MORNING Non-VA SILDENAFIL CITRATE 100MG TAB TAKE ONE TABLET BY MOUTH ONCE A WEEK OUTPT SODIUM FLUORIDE 1.1% TOOTHPASTE (Status = Active) BRUSH SMALL AMOUNT TO TEETH TWICE DAILY FOR TOOTH DECAY PREVENTION Rx# [id number] Last Released: 07/17/23 Qty/Days Supply: 51/60 Rx Expiration Date: 07/14/24 Refills Remainin Indication: FOR TOOTH DECAY PREVENTION Non-VA TAMSULOSIN HCL 0.4MG CAP TAKE 1 CAPSULE BY MOUTH ONCE DAILY OUTPT TAMSULOSIN HCL 0.4MG CAP (Status = Active) TAKE ONE CAPSULE BY MOUTH AT BEDTIME Rx# [id number] Last Released: 07/17/23 Qty/Days Supply: Rx Expiration Date: 07/14/24 Refills Remainin Indication: FOR ENLARGED PROSTATE SUPPLIES PHARMACY TERMS AND POSSIBLE PATIENT ACTIONS INPT = VA inpatient order IV = [facility] intravenous medication OUTPT = [place] outpatient prescription PHARMACY POSSIBLE PATIENT TERMS EXPLANATION ACTIONS -------- --- ACTIVE A prescription that can be If you have refills, filled at the local [place] pharmacy. you may request a refill of this prescription from your VA pharmacy. CLINIC A medication you received during If you have questions a visit to a [place] clinic or about this medication emergency department. contact your VA healthcare team. DISCONTINUED A prescription your provider has Contact your VA stopped. It is no longer healthcare team if you available to be sent to you or need more of this picked up at the [place] pharmacy medication. window. A prescription which is too old Contact your VA to fill. This does not refer to healthcare team if you the expiration date of the need more of this medication in the container. medication. NON-VA A medication that came from If this medication someplace other than a VA information is pharmacy. This may be a incorrect or out of prescription from either the VA date, please tell your or non VA providers that was VA healthcare team. filled outside the VA. Or, it may be an aryk-jeu-stimfzp (OTC), herbal, dietary supplements or sample medication. ON HOLD An active prescription that will Contact your VA not be filled until pharmacy pharmacy when you need resolves the issue. more of this medication. PARKED An active prescription that will Contact your VA not be filled until the patient pharmacy when you need requests it. this medication. PENDING This prescription order has been If you have been sent to the pharmacy for review instructed to start and is not ready yet. this medication now, contact your VA pharmacy. SUSPENDED An active prescription that is Contact your VA not scheduled to be filled yet. pharmacy if you need You should receive it before this medication now. you run out. ======== (x) Printed Medication Reconciliation List Offered and Declined by [place] () Medication Reconciliation List Printed for at Exam () Optometry HT Please Print and Mail Copy of Medication Reconciliation List () AMSA Please Print and Mail Copy of Medication Reconciliation List /josee/ CHACHO CHANCE OPTOMETRY STUDENT Signed: 09/08/2023 11:15 /josee/ CECILIA HUGO OD TIMBER FRAMER HELPER Cosigned: 09/08/2023 13:21 09/08/2023 ADDENDUM STATUS: COMPLETED The optometry validation intern participated in this exam, I saw this [place] in conjunction with the optometry student. The entrance tests and refraction were performed by the student and reviewed by me. I personally met with the patient, confirmed the hisory, complaints and the student's findings, and performed slit lamp and fundus evaluation as indicated. I reviewed and agree with the stated findings, assessment and plan. I have added/edited the documentation to reflect my exam findings and changes to the assessment and plan. Ed re today's findings. [place] repeated back the plan and education. All reminders completed by attending and documented in student note. /josee/ CECILIA HUGO OD TIMBER FRAMER HELPER Signed: 09/08/2023 13:21 CHACHO CHANCE [facility]
--- OUTSIDE RECORDS SUMMARY | 2024-07-15 13:34 | XMS_ITS ---
Author Name [facility] [place] [facility] [facility] [place] Address [address] [place] [address] Care Team Providers Care Combatant Diver Qualified Name Role Phone MARVIN HOFF Primary Care Provider Unavailabl e Insurance Providers: [...] Name Patient's Relationship to Policy [facility] MEDICARE SUPPLEMEN WILIAM MEDEX 2 Jan 02, 2020 [id number] TREY BUITRAGO PATIENT MEDICARE (WNR) MEDICARE (M) PART A Mar 03, 2013 PART A [id number] TREY BUITRAGO WING PATIENT MEDICARE (WNR) MEDICARE (M) PART B Mar 03, 2013 PART B [id number] TREY BUITRAGO PATIENT Selected Encounter This section includes the information on record at [place] for the Encounter. Date/Time Encounter Type Encounter Description Reason Provider Source Aug 01, 2023 09:30 AM OFF/OP EST AUGUST X REQ PHY/QHP PRIMARY CARE/MEDICINE ICD-10-CM H61.21 Impacted cerumen, right ear ETHAN VIVAR Elissa Encounter Template Text not used by [place] Assessments - Encounter Diagnoses This section includes the primary and secondary diagnoses documented for the Encounter. Date/Time Primary/Secondary Diagnosis Diagnosis Name Provider Source August 25, 2023 11:03 AM PRIMARY Impacted cerumen, right ear ETHAN VIVAR [facility] Plan of Treatment: Future Appointments (+ 6 months) and Future Tests (+/- 45 days) The Plan of Treatment section includes future care activities for the [facility] [place] [facility] This section includes future appointments and future orders which are active, pending or scheduled. Future Appointments This section includes appointments that were scheduled to occur 6 months from the date of the Encounter, up to a maximum of 20 appointments. The data comes from all [place] treatment facilities. Appointment Date/Time Appointment Type Appointme nt Facility Name August 11, 2023 11:00 AM AMBULATORY - [place]IC[place] [facility] [place] [facility] August 30, 2023 07:30 AM AMBULATORY - NONE [place] [facility] [place] [facility] Sep 06, 2023 09:00 AM AM[place]ULATORY [place] [facility] [place] [facility] Sep 11, 2023 11:00 AM AMBULATORY - [place]IC[place] [facility] [place] [facility] Dec 05, 2023 11:00 AM AM[place]ORY [place] [facility] [place] [facility] Dec 18, 2023 08:30 AM AMBULATORY - NONE [place] [facility] [place] [facility] Dec 18, 2023 09:40 AM AM[place]ORY [place] [facility] [place] [facility] Jan 02, 2024 09:30 AM AM[place]ORY [place] [facility] [place] [facility] Lab Results: +/- 30 days of the encounter This section includes the Chemistry and Hematology Lab Results on record with [place] for the patient. Radiology Reports and Pathology Reports are provided separately, in subsequent sections. Lab Results This section contains the Chemistry/Hematology Results that were resulted 30 days before or 30 daysafter the date of the Encounter. Date/Time Source Result Type Result - Unit Interpretation Reference Range Specimen Type Comment Jul 13, 2023 11:04 AM [facility] LIPID PANEL FASTING SERUM Specimen Type: SERUM No comment entered. Ordering Provider: MARVIN HOFF Report Released Date/Time: Jul 13, 2023 10:25 AM Reporting Lab: [facility] [address] [facility] [id number] Performing Lab: [address] [address] CHOLESTEROL 169 mg/dL TRIGLYCERIDE 67 mg/dL 0-150 LDL calculated 87 mg/dL 0-129 CHOL/HDL 2.4 HDL CHOLESTEROL 69 mg/dL H 40-60 Jul 13, 2023 11:04 AM [facility] BASIC METABOLIC PANEL (fasting) SERUM Specime n Type: SERUM No comment entered. Ordering Provider: MARVIN HOFF Report Released Date/Time: Jul 13, 2023 10:25 AM Reporting Lab: [address] [address] Performing Lab: [address] [address] UREA NITROGEN 25 mg/dL 7-25 GLUCOSE 86 mg/dL 65-100 SODIUM 141 mmol/L 135-145 POTASSIUM 4.3 mmol/L 3.5-5.0 CHLORIDE 102 mmol/L 100-110 CO2 28 meq/L 20-30 CREATININE, Serum 1.42 mg/dL H 0.50-1.40 eGFR(CKD-EPI 2020) 51 mL/min L >60 Jul 13, 2023 11:04 AM [facility] LIVER FUNCTION SERUM Specimen Type: SERUM No comment entered. Ordering Provider: MARVIN HOFF Report Released Date/Time: Jul 13, 2023 10:25 AM Reporting Lab: [address] [address] Performing Lab: [address] [address] PROTEIN,TOTAL 7.1 g/dL 6.0-8.3 ALBUMIN 4.2 g/dL 3.5-5.0 ALKALINE PHOSPHATASE 106 U/L 40-150 AST 26 U/L 5-34 ALT 24 U/L BILIRUBIN, TOTAL 0.8 mg/dL 0.2-1.2 Social History: Smoking Status (Most current) and Tobacco Use (All prior to encounter date) This section includes the most current, and the historical, smoking and tobacco- related health factors from the [place] facility where the Encounter took place. Current Smoking Status This section includes the most current smoking, or tobacco-related health factor, from the [place] facility where the Encounter took place. Date/Time Current Smoking Status Comment Facil ity Feb 14, 2023 09:30 AM [facility] Tobacco Use History This section includes a history of the smoking, or tobacco-related health factors, that were collected on or before the date of the Encounter. The data comes from the [place] facility where the Encounter took place. Date/Time Smoking Status/Tobacco Use Comment F acility Jan 04, 2022 09:30 AM [facility]TOBACCO [facility] Apr 24, 2020 09:30 AM [facility] Apr 12, 2019 10:51 AM VA-TOBACCO NEVER USED [facility] Apr 01, 2013 10:51 AM LIFETIME NON-TOBACCO USER [facility] Advance Directives: All historical and current Section Date Range: From patient's date of to the date document was created. This section includes ALL of a patient's completed or amended [place] Advance and Rescinded Directives. The entries below indicate that a directive exists for the patient, but an actual copy is not included with this document. The data comes from all [place] facilities. Date Advance Directives Provider Source May 10, 2019 ADVANCE DIRECTIVE EV DAVIDSON [facility] Encounter Notes: All associated encounter notes This section contains the clinical notes associated to the Encounter. Date/Time Encounter Note(s) Provider Source Aug 01, 2023 02:05 PM ADDENDUM: LOCAL TITLE: Addendum STANDARD TITLE: ADDENDUM DATE OF NOTE: AUG 01, 2023@14:05:46 ENTRY DATE: AUG 01, 2023@14:05:47 AUTHOR: MARVIN HOFF EXP COSIGNER: URGENCY: STATUS: COMPLETED i will change RX to atorvatstain 10 mg daily. in the meantime- have him take the 1/2 tab (effective 20 mg dose every OTHER DAY) /josee/ MARVIN HOFF D.O. PHYSICIAN Signed: 08/01/2023 14:06 Receipt Acknowledged By: 08/01/2023 14:55 /josee/ ETHAN VIVAR RN REGISTERED NURSE === --- Original Document --- 08/01/23 AMBULATORY/OUTPATIENT CARE NOTE: F: here today for schedule RN visit for right sided ear lavage in follow up from RN visit on 07/28/23 D: Upon exam there is a large amount of impacted cerumen in right ear. [place] reports he has continued use of Debrox drops. A: Using warm water in a syring, large pieces of wax removed easily from right ear. Tympanic membrane easily visualized and ear appears clear. [place] does note that he occassionally feels like I'm in an airplane, like my ears need to pop . He denies experiencing this at this time. His plan is to report to Audiology at this time to schedule appt. as he was advised to do by Dr. Hoff. Encouraged to call with further questions or concerns. While here he also had questions regarding his Atorvastatin. He states that he was getting it filled at [facility], but switched [place] the [place]. The [facility] bottle says Atorvastatin 10 mg take 1 tablet daily . He has the bottle of Atorvastatin from both [facility] and the [place] with him at this visit. Th bottle from the [place] is a 40 mg tablet with directions to take 1/2 tablet daily. This would be 20 mg tablet. This global technical writer called to pharmacy who advised that this is what was ordered. Plan to let Dr. Hoff know and have her advise if medication was changed. This global technical writer will call for futher explanation after following up with PCP. is comfortable with this plan and will await RN phone call. R: left clinic ad paulette with plan to head to Audiology ALERT TO PCP to review Atorvastatin and advise if there was a medication increase. /josee/ ETHAN VIVAR RN REGISTERED NURSE Signed: 08/01/2023 10:11 Receipt Acknowledged By: 08/01/2023 14:05 /josee/ MARVIN HOFF D.O. PHYSICIAN MARVIN HFO[facility] [place] [facility] Aug 01, 2023 10:01 AM PRIMARY CARE OUTPA TIENT NOTE: LOCAL TITLE: AMBULATORY/OUTPATIENT CARE NOTE STANDARD TITLE: PRIMARY CARE OUTPATIENT NOTE DATE OF NOTE: AUG 01, 2023@10:01 ENTRY DATE: AUG 01, 2023@10:01:09 AUTHOR: ETHAN VIVAR EXP COSIGNER: URGENCY: STATUS: COMPLETED AMBULATORY/OUTPATIENT CARE NOTE Has ADDENDA F: [place] here today for schedule RN visit for right sided ear lavage in follow up from RN visit on 07/28/23 D: Upon exam there is a large amount of impacted cerumen in right ear. reports he has continued use of Debrox drops. A: Using warm water in a syring, large pieces of wax removed easily from right ear. Tympanic membrane easily visualized and ear appears clear. does note that he occassionally feels like I'm in an airplane, like my ears need to pop . He denies experiencing this at this time. His plan is to report to Audiology at this time to schedule appt. as he was advised to do by Dr. Hoff. Encouraged to call with further questions or concerns. While here he also had questions regarding his Atorvastatin. He states that he was getting it filled at [facility], [facility] bottle says Atorvastatin 10 mg take 1 tablet daily . He has the bottle of Atorvastatin from both [facility] [place] the [place] with him at this visit. Th bottle from the [place] is a 40 mg tablet with directions to take 1/2 tablet daily. This would be 20 mg tablet. This global technical writer called to pharmacy who advised that this is what was ordered. Plan to let Dr. Hoff know and have her advise if medication was changed. This global technical writer will call for futher explanation after following up with PCP. is comfortable with this plan and will await RN phone call. R: left clinic ad paulette with plan to head to Audiology ALERT TO PCP to review Atorvastatin and advise if there was a medication increase. /oriana VIVAR RN REGISTERED NURSE Signed: 08/01/2023 10:11 Receipt Acknowledged By: 08/01/2023 14:05 /oriana HOFF D.O. PHYSICIAN 08/01/2023 ADDENDUM STATUS: COMPLETED i will change RX to atorvatstain 10 mg daily. in the meantime- have him take the 1/2 tab (effective 20 mg dose every OTHER DAY) /oriana HOFF D.O. PHYSICIAN Signed: 08/01/2023 14:06 Receipt Acknowledged By: 08/01/2023 14:55 /oriana VIVAR RN REGISTERED NURSE 08/01/2023 ADDENDUM STATUS: COMPLETED Attempted to call at both home and cell numbers, left voicemails on both with Direct phone number for call back. /oriana VIVAR RN REGISTERED NURSE Signed: 08/01/2023 14:57 08/01/2023 ADDENDUM STATUS: COMPLETED spoke directly with advised him that PCP will enter a new order for Atorvastatin 10 mg, he reports that he has enough of the 10 mg tablets to get him through. Educated on 1/2 tab of 40 mg every other day if he runs out of the 10 mg. verbally expresses understanding. Encouraged to call back with any questions/concerns. /oriana VIVAR RN REGISTERED NURSE Signed: 08/01/2023 16:24 ETHAN VIVAR [facility] [facility]
--- OUTSIDE RECORDS SUMMARY | 2024-07-15 13:34 | XMS_ITS | Encounter Summary ---
Author Organization [employer] Address [address] [place] [address] Care Team Providers Care Curer Acid Drum Name Role Phone Unavailable Primary Care Provider Unavailabl e Encounter Details Date Type Department Care Team (Latest Contact Info) Description 10/27/2020 Abstract [facility] CONVERSIONS Dental, Provider, DDS Social History Tobacco [...]
== END 2024-07-15 12:04 | disposition home or self-care (01) ==
LOC: HO.HSMS 11:32
PROVIDERS: Visit Provider Psychiatry & Neurology Neurology
DX: G20.C Parkinsonism, unspecified (principal)
CPT/HCPCS: 99214; G2211

== ENCOUNTER → 2024-07-15 11:13 | Outpatient (BNVA) | payer OTHER, SELFPAY | PROVIDERS: Visit Provider Psychiatry & Neurology Neurology | DX: G20.C Parkinsonism, unspecified (principal); Z91.81 History of falling; Z77.098 Contact with and (suspected) exposure to other hazardous, chiefly nonmedicinal, chemicals | CPT/HCPCS: 99212 ==

== ENCOUNTER 2025-03-10 11:01 | Outpatient (AMB) | payer OTHER, SELFPAY ==
[2025-03-10 11:06] VITALS: BP 128/82; PULSE 63; O2SAT 98; BMI 26.7
--- NOTE | 2025-03-10 11:06 | MHC.OFFVIS ---
Vital Signs 03/10/25 11:06 Height 5 ft 10 in Weight 186 lb 2 oz BMI 26.7 BP 128/82 Blood Pressure Location Rt brachial Position Sitting Pulse 63 Pulse Source Pulse Oximeter Pulse Oximetry (%) 98 Oxygen Delivery Method Room Air Intake Visit Reasons: 9mon follow-up Intake Note: Follow up Parkinsonism, unspecified Parks Worker Required: No Accompanied by: Spouse Allergies No Known Allergies Allergy (Verified 03/10/25 11:06) HPI Comments Details: 74y/o Right handed male comes for follow up of Parkinsonism. 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 The tremors does not bother him and does not affect his ADLs. He reports mild memory issues. Sleep is ok but has nocturia . He denies nightmares, vivid dreams , REM behavior disorder. His mood is Ok and he is motivated. He did not notice any change in his speech. He drools frequently . He has mild difficulty with hand writing. No problems using utensils, dressing , with shower. His gait is slow and mildly off balance . His daughter noticed that he does not swing his left arm. No dizziness , no double vision . He has constipation and mild urgency He was given sienmet but he did not try it. He declined MARILEE scan. He was exposed to [employer]ANGE - 9 months. 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 He had a few falls- 2 falls was related to passing out in the middle of the night. [facility] Medical History Hypersomnia Snoring Parkinsonism Parkinsonism Male erectile dysfunction, unspecified Essential hypertension Carcinoma in situ of prostate Benign prostate hyperplasia Social History Household Members: Spouse Household Members Other:: Sarai, Housing: House Alcohol intake: current Comment: occasional Patient Tobacco Use Status: Never used Tobacco Physical Exam Vital Signs: Last Vital Signs Pulse 63 03/10/25 11:06 BP 128/82 03/10/25 11:06 Pulse Ox 98 03/10/25 11:06 Oxygen Delivery Method Room Air 03/10/25 11:06 BMI result Body Mass Index 26.7 Const General: cooperative, healthy appearing, comfortable and no acute distress Nutritional Appearance: average body habitus Orientation/consciousness: patient oriented x3 Eyes Pupils: Equal, round and reactive pupils present Neuro Other: Normal facial expression and blink head tremors Neck tightness No tremors today Right Ue 1 + cog wheel rigidity Kathia hand movements better Leg movements normal Gait- mild stoop - decreased arm swings kathia L>R ( patient walks 6 miles on days he does not work) General: patient oriented x3, moves all extremities and no focal motor deficits Cranial nerves: Yes Facial sensation intact/muscles of mastication intact, Yes Equal, round and reactive pupils present, Yes Bilaterally intact EOM present, Yes Nystagmus not present, Yes Normal facial strength present, Yes Midline tongue present, Yes Symmetric palate elevation present and Yes Ability to bilaterally elevate shoulders present Cognition (Neuro): normal cognition Motor exam (neuro): 5/5 motor strength present throughout Coordination: [id number] test normal Assessment & Plan Assessment & Plan (1) Parkinsonism: Code(s): G20.C - Parkinsonism, unspecified Category: Medical Qualifiers: Parkinsonism type: unspecified Qualified Code(s): G20.C - Parkinsonism, unspecified Plan MARILEE scan results discussed No need for medications now. Continue exercises. Coding Level of Care Code Est Pt Level 3 (11701) Diagnoses Parkinsonism, unspecified Parkinsonism type G20.C Parkinsonism type: unspecified
== END 2025-03-10 11:30 | disposition home or self-care (01) ==
LOC: HO.HSMS 11:01
PROVIDERS: Visit Provider Psychiatry & Neurology Neurology
DX: G20.C Parkinsonism, unspecified (principal)
CPT/HCPCS: 99213

== ENCOUNTER → 2025-03-10 11:01 | Outpatient (BNVA) | payer OTHER, SELFPAY | PROVIDERS: Visit Provider Psychiatry & Neurology Neurology | DX: G20.A1 Parkinson's disease without dyskinesia, without mention of fluctuations (principal); F02.80 Dementia in other diseases classified elsewhere, unspecified severity, without behavioral disturbance, psychotic disturbance, mood disturbance, and anxiety; R35.1 Nocturia; C61 Malignant neoplasm of prostate | CPT/HCPCS: 99212 ==